=== PATIENT | female | born 1950 | race Caucasian/White ===

== ENCOUNTER 2018-02-27 05:30 | Inpatient (IN) ==
[2018-02-20 13:48] LABS: Basophils # 0.1 10*3/uL (0.0-0.2); Basophils % 0.7 % (0.0-0.8); Eosinophils # 0.2 10*3/uL (0.0-0.87); Eosinophils % 3.3 % (0.00-10.9); Hematocrit 42.7 VOL% (35.7-47.0); Hemoglobin 13.8 GM/DL (12.0-16.0); Immature Granulocytes % 0.3 %; Immature Granulocytes Absolute 0.02 #; Lymphocytes % 28.4 % (21.3-54.2); Mean Corpuscular HGB Conc 32.3 GM/DL (32-36); Mean Corpuscular Hemoglobin 29 PG (27-34); Mean Platelet Volume 9.8 FL (9.6-12.0); Monocytes # 0.4 10*3/uL (0.11-0.8); Monocytes % 5.8 % (1.7-12.7); Neutrophils # 4.2 10*3/uL (1.4-7.4); Neutrophils % 61.5 % (38.7-73.9); Platelet Count 291 T/CUMM (130-400); Red Blood Count 4.85 MC/CUMM (3.8-5.5); Red Cell Distribution Width 14.6 % (9.3-17.3); White Blood Count 6.9 T/CUMM (4-12)
[2018-02-20 14:18] LABS: Albumin 3.8 G/DL (3.4-5.0); Bilirubin,Total 0.7 MG/DL (0.2-1.0); Calcium 8.8 MG/DL (8.5-10.1); Osmolality,Calculated 284.1 MOS/KG (273-304); Total Protein 7.3 G/DL (6.4-8.3)
[2018-02-20 14:27] LABS: Apearance,Urine CLEAR (Clear); Bilirubin,Urine Negative (Negative); Blood, Urine Negative (Negative); Glucose,Urine (UA) Negative (Negative); INR 0.9; Ketones,Urine Negative (Negative); Mucus,Urine Occasional /LPF (Occasional); Nitrite,Urine Negative (Negative); PT Patient Result 9.6 SECS; Partial Thromboplastin Time 27.1 SECS (0-40); Protein,Urine Negative; RBC,Urine 1 /HPF (0-4); Squamous Epithelial Cell,Urine Occasional /HPF (0-10); Urine Color Yellow (Yellow); Urine Specific Gravity 1.009 (1.001-1.035); Urine Urobilinogen < 2.0 EU/DL (0.2-1.0); WBC,Urine 2 /HPF (0-6)
[2018-02-28 05:47] LABS: Basophils % 0.1 % (0.0-0.8); Hematocrit 31.9 VOL% (35.7-47.0); Hemoglobin 10.2 GM/DL (12.0-16.0); Immature Granulocytes % 0.7 %; Lymphocytes # 1.4 10*3/uL (1.4-4.0); Lymphocytes % 9.5 % (21.3-54.2); Mean Corpuscular Hemoglobin 29 PG (27-34); Mean Corpuscular Volume 89.4 FL (87-102); Mean Platelet Volume 10.3 FL (9.6-12.0); Monocytes # 1.1 10*3/uL (0.11-0.8); Monocytes % 7.5 % (1.7-12.7); Neutrophils # 12.3 10*3/uL (1.4-7.4); Neutrophils % 82.2 % (38.7-73.9); Platelet Count 233 T/CUMM (130-400); Red Blood Count 3.57 MC/CUMM (3.8-5.5); Red Cell Distribution Width 14.6 % (9.3-17.3); White Blood Count 14.9 T/CUMM (4-12)
[2018-02-28 06:20] LABS: Calcium 8.3 MG/DL (8.5-10.1); Osmolality,Calculated 290.8 MOS/KG (273-304); Potassium 3.9 MMOL/L (3.5-5.1)
[2018-03-01 05:34] LABS: Basophils % 0.2 % (0.0-0.8); Eosinophils # 0.1 10*3/uL (0.0-0.87); Hematocrit 32.3 VOL% (35.7-47.0); Hemoglobin 10.3 GM/DL (12.0-16.0); Immature Granulocytes % 0.5 %; Immature Granulocytes Absolute 0.06 #; Lymphocytes # 2.2 10*3/uL (1.4-4.0); Lymphocytes % 17.1 % (21.3-54.2); Mean Corpuscular HGB Conc 31.9 GM/DL (32-36); Mean Corpuscular Hemoglobin 28 PG (27-34); Mean Platelet Volume 10.3 FL (9.6-12.0); Monocytes % 7.5 % (1.7-12.7); Neutrophils # 9.6 10*3/uL (1.4-7.4); Neutrophils % 73.7 % (38.7-73.9); Platelet Count 270 T/CUMM (130-400); Red Blood Count 3.63 MC/CUMM (3.8-5.5); Red Cell Distribution Width 15.5 % (9.3-17.3); White Blood Count 13.1 T/CUMM (4-12)
[2018-03-02 04:39] LABS: Basophils # 0.1 10*3/uL (0.0-0.2); Basophils % 0.6 % (0.0-0.8); Eosinophils # 0.2 10*3/uL (0.0-0.87); Eosinophils % 2.6 % (0.00-10.9); Hemoglobin 10.2 GM/DL (12.0-16.0); Immature Granulocytes % 0.2 %; Immature Granulocytes Absolute 0.02 #; Lymphocytes # 2.1 10*3/uL (1.4-4.0); Lymphocytes % 23.2 % (21.3-54.2); Mean Corpuscular HGB Conc 31.9 GM/DL (32-36); Mean Corpuscular Hemoglobin 29 PG (27-34); Mean Corpuscular Volume 89.6 FL (87-102); Mean Platelet Volume 9.8 FL (9.6-12.0); Monocytes # 0.8 10*3/uL (0.11-0.8); Monocytes % 9.4 % (1.7-12.7); Neutrophils # 5.7 10*3/uL (1.4-7.4); Platelet Count 240 T/CUMM (130-400); Red Blood Count 3.57 MC/CUMM (3.8-5.5); Red Cell Distribution Width 15.4 % (9.3-17.3); White Blood Count 8.9 T/CUMM (4-12)
[2018-03-02 07:31] VITALS: BP 100/50
== END 2018-03-02 11:00 | disposition swing bed (61) | DRG 470 ==
LOC: N.OR 05:30 → N.SDSINP 05:30 → N.3E 11:33
PROVIDERS: ADMIT Orthopaedic Surgery; ATTEND Orthopaedic Surgery

== ENCOUNTER 2019-08-05 15:14 | Observation (INO) ==
[2019-08-05 15:50] LABS: Basophils # 0.1 10*3/uL (0.0-0.2); Basophils % 0.8 % (0.0-0.8); Eosinophils # 0.3 10*3/uL (0.0-0.87); Hematocrit 40.5 VOL% (35.7-47.0); Hemoglobin 12.6 GM/DL (12.0-16.0); Immature Granulocytes % 0.6 %; Immature Granulocytes Absolute 0.05 #; Lymphocytes % 22.5 % (21.3-54.2); Mean Corpuscular HGB Conc 31.1 GM/DL (32-36); Mean Corpuscular Volume 88.4 FL (87-102); Mean Platelet Volume 9.7 FL (9.6-12.0); Monocytes % 6.5 % (1.7-12.7); Neutrophils % 66.6 % (38.7-73.9); Platelet Count 311 T/CUMM (130-400); Red Blood Count 4.58 MC/CUMM (3.8-5.5); Red Cell Distribution Width 15.7 % (9.3-17.3); White Blood Count 8.9 T/CUMM (4-12)
[2019-08-05 16:03] LABS: INR 0.9; PT Patient Result 9.8 SECS (9.6-12.2)
[2019-08-05 16:13] LABS: Albumin 3.9 G/DL (3.4-5.0); Bilirubin,Total 0.8 MG/DL (0.2-1.0); Calcium 9.7 MG/DL (8.5-10.1); Total Protein 7.5 G/DL (6.4-8.3)
[2019-08-05 16:21] LABS: Thyroid Stimulating Hormone 0.116 uIU/ml (0.358-3.74)
[2019-08-05] MEDS ORDERED: NITROGLYCERIN 2% OINT 1 INCH/GM PACK TOP STA (16:54)
[2019-08-05] MEDS ORDERED: ENOXAPARIN 100 MG/ML SYRINGE SUBCUT STA (16:54)
[2019-08-05] MEDS ORDERED: ASPIRIN CHEW 81 MG TABLET PO STA (16:54)
[2019-08-05] MEDS ORDERED: HEPARIN 5,000 UNIT/1 ML VIAL IV STA (16:57)
[2019-08-05] MEDS ORDERED: CLOPIDOGREL 300 MG TABLET PO STA (16:58)
[2019-08-05] MEDS ORDERED: HEPARIN DRIP 25,000 UNITS/500 ML PREMIX IV SCH (17:00)
[2019-08-05] MEDS ORDERED: TICAGRELOR 90 MG TABLET PO STA (17:05)
[2019-08-05] MEDS ORDERED: diphenhydrAMINE CAP 25 MG CAPSULE PO PRN (17:47)
[2019-08-05] MEDS ORDERED: ACETAMINOPHEN 325 MG TABLET PO PRN (17:47)
[2019-08-05] MEDS ORDERED: ONDANSETRON 4 MG/2 ML VIAL IV PRN (17:47)
[2019-08-05] MEDS ORDERED: BISACODYL 5 MG TABLET PO PRN (17:47)
[2019-08-05] MEDS ORDERED: MAGNESIUM SULF RIDER 2 GM in PREMIX 1 EACH IV PRN (17:47)
[2019-08-05] MEDS ORDERED: MAGNESIUM SULF RIDER 4 GM in PREMIX 1 EACH IV PRN (17:47)
[2019-08-05] MEDS ORDERED: NITROGLYCERIN SL 0.4 MG TABLET SL PRN (17:51)
[2019-08-05] MEDS ORDERED: POTASSIUM CHLORIDE RIDER 10 MEQ in PREMIX 1 EACH IV PRN (17:53)
[2019-08-05] MEDS ORDERED: diphenhydrAMINE CAP 25 MG CAPSULE PO ONE (17:53)
[2019-08-05] MEDS ORDERED: DIAZEPAM 5 MG TABLET PO ONE (17:53)
[2019-08-05] MEDS ORDERED: INFLUENZA VIRUS VACCINE 0.5 ML SYRINGE IM ONE (18:23)
[2019-08-05] MEDS ORDERED: ALPRAZolam 0.25 MG TABLET PO PRN (21:00)
[2019-08-05] MEDS: OMEGA 3 ACID ETHYL ESTERS 1 GM CAPSULE PO SCH (21:42)
[2019-08-05] MEDS: LISINOPRIL 20 MG TABLET PO SCH (21:42)
[2019-08-05] MEDS: ROSUVASTATIN 20 MG TABLET PO SCH (21:43)
[2019-08-05] MEDS: carvediloL 3.125 MG TABLET PO SCH (21:43)
[2019-08-05] MEDS: CALCIUM (CARBONATE)/VITAMIN D 500 MG-200 UNIT TABLET PO SCH (21:44)
[2019-08-05] MEDS: PRAMIPEXOLE 0.25 MG TABLET PO SCH (21:44)
[2019-08-05] MEDS: HYDROCORTISONE 10 MG TABLET PO SCH (21:45)
[2019-08-05 22:50] LABS: Apearance,Urine CLEAR (Clear); Bacteria,Urine Occasional /HPF (Few); Bilirubin,Urine Negative (Negative); Blood, Urine Negative (Negative); Glucose,Urine (UA) Negative (Negative); Ketones,Urine Negative (Negative); Mucus,Urine Occasional /LPF (Occasional); Nitrite,Urine Negative (Negative); Protein,Urine Negative; RBC,Urine 2 /HPF (0-4); Urine Color Yellow (Yellow); Urine Urobilinogen < 2.0 EU/DL (0.2-1.0)
[2019-08-06 04:04] LABS: Basophils # 0.1 10*3/uL (0.0-0.2); Basophils % 0.7 % (0.0-0.8); Eosinophils # 0.3 10*3/uL (0.0-0.87); Eosinophils % 3.6 % (0.00-10.9); Hematocrit 37.2 VOL% (35.7-47.0); Hemoglobin 11.8 GM/DL (12.0-16.0); Immature Granulocytes % 0.4 %; Immature Granulocytes Absolute 0.03 #; Lymphocytes # 2.2 10*3/uL (1.4-4.0); Mean Corpuscular HGB Conc 31.7 GM/DL (32-36); Mean Corpuscular Volume 88.4 FL (87-102); Mean Platelet Volume 9.6 FL (9.6-12.0); Monocytes % 7.1 % (1.7-12.7); Neutrophils % 56.2 % (38.7-73.9); Platelet Count 255 T/CUMM (130-400); Red Blood Count 4.21 MC/CUMM (3.8-5.5); Red Cell Distribution Width 15.8 % (9.3-17.3); White Blood Count 6.9 T/CUMM (4-12)
[2019-08-06 04:22] LABS: Albumin 3.3 G/DL (3.4-5.0); Bilirubin,Total 1.2 MG/DL (0.2-1.0); Calcium 9.3 MG/DL (8.5-10.1); Osmolality,Calculated 293.4 MOS/KG (273-304); Total Protein 6.4 G/DL (6.4-8.3)
[2019-08-06] MEDS: SODIUM CHLORIDE 0.45% 1,000 ML IV SCH ×2 (05:17→17:48)
[2019-08-06] MEDS ORDERED: DIAZEPAM 5 MG TABLET PO ONE (06:30)
[2019-08-06] MEDS ORDERED: diphenhydrAMINE CAP 25 MG CAPSULE PO ONE (06:30)
[2019-08-06] MEDS: LEVOTHYROXINE 88 MCG TABLET PO SCH (06:43)
[2019-08-06] MEDS ORDERED: TIMOLOL 0.5% OPH SOLN 5 ML BOTTLE LEFT EYE SCH (09:00)
[2019-08-06] MEDS ORDERED: HYDROCORTISONE 10 MG TABLET PO ONE (09:00)
[2019-08-06] MEDS: CHOLECALCIFEROL 1,000 UNIT TABLET PO SCH (09:29)
[2019-08-06] MEDS: MULTIVITAMIN (CENTRUM) TABLET PO SCH (09:29)
[2019-08-06] MEDS: OMEGA 3 ACID ETHYL ESTERS 1 GM CAPSULE PO SCH ×2 (09:31→20:12)
[2019-08-06] MEDS: HYDROCORTISONE 10 MG TABLET PO SCH ×2 (09:31→20:14)
[2019-08-06] MEDS: carvediloL 3.125 MG TABLET PO SCH ×2 (09:32→18:22)
[2019-08-06] MEDS: PANTOPRAZOLE 40 MG TABLET PO SCH (09:32)
[2019-08-06] MEDS: NITROGLYCERIN DRIP 50 MG/250 ML BOTTLE IV SCH ×2 (10:42→18:22)
[2019-08-06] MEDS ORDERED: HEPARIN/NACL 0.9% 2 UNITS/ML 1,000 ML IV ONE (10:47)
[2019-08-06] MEDS ORDERED: LIDOCAINE 1% 20 ML VIAL ONE (11:13)
[2019-08-06] MEDS ORDERED: MIDAZOLAM 2 MG/2 ML VIAL ONE (11:16)
[2019-08-06] MEDS ORDERED: fentaNYL 100 MCG/2 ML VIAL ONE (11:16)
[2019-08-06] MEDS ORDERED: SODIUM CHLORIDE 0.9% 1,000 ML IV SCH (12:00)
[2019-08-06] MEDS: ROSUVASTATIN 20 MG TABLET PO SCH (20:11)
[2019-08-06] MEDS: LISINOPRIL 20 MG TABLET PO SCH (20:12)
[2019-08-06] MEDS: CALCIUM (CARBONATE)/VITAMIN D 500 MG-200 UNIT TABLET PO SCH (20:12)
[2019-08-06] MEDS: PRAMIPEXOLE 0.25 MG TABLET PO SCH (20:12)
[2019-08-07] MEDS: SODIUM CHLORIDE 0.45% 1,000 ML IV SCH ×2 (02:00→11:23)
[2019-08-07 04:41] LABS: Basophils # 0.1 10*3/uL (0.0-0.2); Basophils % 0.9 % (0.0-0.8); Eosinophils # 0.2 10*3/uL (0.0-0.87); Eosinophils % 2.8 % (0.00-10.9); Hematocrit 39.7 VOL% (35.7-47.0); Hemoglobin 12.2 GM/DL (12.0-16.0); Immature Granulocytes % 0.3 %; Immature Granulocytes Absolute 0.02 #; Lymphocytes # 2.3 10*3/uL (1.4-4.0); Lymphocytes % 28.8 % (21.3-54.2); Mean Corpuscular HGB Conc 30.7 GM/DL (32-36); Mean Corpuscular Volume 89.6 FL (87-102); Mean Platelet Volume 10.2 FL (9.6-12.0); Monocytes % 7.6 % (1.7-12.7); Neutrophils % 59.6 % (38.7-73.9); Platelet Count 262 T/CUMM (130-400); Red Blood Count 4.43 MC/CUMM (3.8-5.5); Red Cell Distribution Width 15.8 % (9.3-17.3); White Blood Count 7.8 T/CUMM (4-12)
[2019-08-07 05:04] LABS: Osmolality,Calculated 296.3 MOS/KG (273-304)
[2019-08-07] MEDS: LEVOTHYROXINE 88 MCG TABLET PO SCH (05:46)
[2019-08-07] MEDS: ENOXAPARIN 40 MG/0.4 ML SYRINGE SUBCUT SCH (05:46)
[2019-08-07] MEDS: carvediloL 3.125 MG TABLET PO SCH ×2 (08:54→18:20)
[2019-08-07] MEDS: ASPIRIN EC 81 MG TABLET PO SCH (08:54)
[2019-08-07] MEDS: ISOSORBIDE MONONITRATE 30 MG TABLET PO SCH (08:54)
[2019-08-07] MEDS: MULTIVITAMIN (CENTRUM) TABLET PO SCH (08:54)
[2019-08-07] MEDS: OMEGA 3 ACID ETHYL ESTERS 1 GM CAPSULE PO SCH ×2 (08:55→21:32)
[2019-08-07] MEDS: PANTOPRAZOLE 40 MG TABLET PO SCH (08:55)
[2019-08-07] MEDS: CHOLECALCIFEROL 1,000 UNIT TABLET PO SCH (08:56)
[2019-08-07] MEDS ORDERED: NON-FORMULARY MEDICATION (Esomeprazole Magnesium [Nexium] 40 MG) PO SCH (09:00)
[2019-08-07] MEDS: HYDROCORTISONE 10 MG TABLET PO SCH ×2 (09:01→21:30)
[2019-08-07] MEDS: DOCUSATE SODIUM 100 MG CAPSULE PO PRN ×2 (14:52→21:36)
[2019-08-07] MEDS: ROSUVASTATIN 20 MG TABLET PO SCH (21:29)
[2019-08-07] MEDS: LISINOPRIL 20 MG TABLET PO SCH (21:29)
[2019-08-07] MEDS: PRAMIPEXOLE 0.25 MG TABLET PO SCH (21:30)
[2019-08-07] MEDS: CALCIUM (CARBONATE)/VITAMIN D 500 MG-200 UNIT TABLET PO SCH (21:31)
[2019-08-08] MEDS: LEVOTHYROXINE 88 MCG TABLET PO SCH (06:08)
[2019-08-08] MEDS: ENOXAPARIN 40 MG/0.4 ML SYRINGE SUBCUT SCH (06:08)
[2019-08-08 08:25] VITALS: BP 120/60
[2019-08-08] MEDS: ASPIRIN EC 81 MG TABLET PO SCH (09:20)
[2019-08-08] MEDS: ISOSORBIDE MONONITRATE 30 MG TABLET PO SCH (09:20)
[2019-08-08] MEDS: carvediloL 3.125 MG TABLET PO SCH (09:21)
[2019-08-08] MEDS: MULTIVITAMIN (CENTRUM) TABLET PO SCH (09:21)
[2019-08-08] MEDS: PANTOPRAZOLE 40 MG TABLET PO SCH (09:21)
[2019-08-08] MEDS: CHOLECALCIFEROL 1,000 UNIT TABLET PO SCH (09:23)
[2019-08-08] MEDS: OMEGA 3 ACID ETHYL ESTERS 1 GM CAPSULE PO SCH (09:26)
[2019-08-08] MEDS: HYDROCORTISONE 10 MG TABLET PO SCH (09:27)
== END 2019-08-08 15:57 | disposition home or self-care (01) ==
LOC: N.ED 15:14 → N.EDINP 17:00 → INTOOBSV 17:00 → N.ICU 18:08 → N.TELES 08-07 18:41
PROVIDERS: ADMIT Internal Medicine Cardiovascular Disease; ATTEND Internal Medicine Cardiovascular Disease
PROC: CLCCHCL (ICD-10-PCS; 2019-08-06 11:15)

== ENCOUNTER 2019-08-13 08:53 | Inpatient (IN) ==
[~2019-08-13 08:53] MED LIST: DEXTROSE 50% 25 GM/50 ML VIAL IV PRN; GLUCAGON 1 MG VIAL IM PRN; NITROGLYCERIN SL 0.4 MG TABLET SL PRN; SODIUM CHLORIDE 0.9% 1,000 ML IV SCH
[2019-08-13] MEDS ORDERED: MODAFINIL 200 MG PO SCH (09:00)
[2019-08-13] MEDS ORDERED: BIOTIN 5 MG PO SCH (09:00)
[2019-08-13] MEDS ORDERED: FINASTERIDE 1 MG PO SCH (09:00)
[2019-08-13] MEDS: ASPIRIN EC 81 MG TABLET PO SCH (09:35)
[2019-08-13] MEDS: ISOSORBIDE MONONITRATE 30 MG TABLET PO SCH (09:36)
[2019-08-13] MEDS: LEVOTHYROXINE 88 MCG TABLET PO SCH (09:36)
[2019-08-13] MEDS: OMEGA 3 ACID ETHYL ESTERS 1 GM CAPSULE PO SCH ×2 (09:36→20:51)
[2019-08-13] MEDS: HYDROCORTISONE 10 MG TABLET PO SCH (09:36)
[2019-08-13] MEDS: MULTIVITAMIN (CENTRUM) TABLET PO SCH (09:36)
[2019-08-13] MEDS: carvediloL 3.125 MG TABLET PO SCH ×2 (09:36→20:51)
[2019-08-13] MEDS: PANTOPRAZOLE 40 MG TABLET PO SCH (09:36)
[2019-08-13] MEDS: CHLORHEXIDINE 0.12% ORAL RINSE 60 ML BOTTLE SWISH/SPIT SCH ×2 (09:36→22:22)
[2019-08-13] MEDS: CHOLECALCIFEROL 1,000 UNIT TABLET PO SCH (09:37)
[2019-08-13] MEDS: TIMOLOL 0.5% OPH SOLN 5 ML BOTTLE LEFT EYE SCH (09:37)
[2019-08-13] MEDS ORDERED: INFLUENZA VIRUS VACCINE 0.5 ML SYRINGE IM ONE (09:55)
[2019-08-13 10:01] LABS: Basophils # 0.1 10*3/uL (0.0-0.2); Basophils % 0.8 % (0.0-0.8); Eosinophils # 0.3 10*3/uL (0.0-0.87); Hematocrit 40.8 VOL% (35.7-47.0); Hemoglobin 12.7 GM/DL (12.0-16.0); Immature Granulocytes % 0.4 %; Immature Granulocytes Absolute 0.03 #; Lymphocytes # 2.9 10*3/uL (1.4-4.0); Lymphocytes % 38.8 % (21.3-54.2); Mean Corpuscular HGB Conc 31.1 GM/DL (32-36); Mean Corpuscular Volume 88.9 FL (87-102); Mean Platelet Volume 10.3 FL (9.6-12.0); Monocytes % 8.2 % (1.7-12.7); Neutrophils % 47.8 % (38.7-73.9); Platelet Count 315 T/CUMM (130-400); Red Blood Count 4.59 MC/CUMM (3.8-5.5); Red Cell Distribution Width 15.9 % (9.3-17.3); White Blood Count 7.6 T/CUMM (4-12)
[2019-08-13 10:26] LABS: Albumin 3.8 G/DL (3.4-5.0); Calcium 9.4 MG/DL (8.5-10.1); Osmolality,Calculated 286.8 MOS/KG (273-304); Total Protein 7.1 G/DL (6.4-8.3)
[2019-08-13] MEDS ORDERED: CEFUROXIME INJ 1,500 MG in SYRINGE 1 EACH IV ONE (12:00)
[2019-08-13 15:06] LABS: Allen Test Positive; Pt O2 Delivery Device Room Air
[2019-08-13 15:07] LABS: ABG Base Excess 0.4 MMOL/L (-2.5-2.5); ABG HCO3 24.7 MMOL/L (20-26); ABG Oxygen Saturation 93.9 % (95-100); ABG PCO2 40.3 MM HG (35-48); ABG PH 7.402 (7.35-7.45); ABG PO2 71.1 MM HG (80-95); ABG TCO2 22.2 MMOL/L (23-27)
[2019-08-13] MEDS: CHLORHEXIDINE 4% SOLN 118 ML BOTTLE TOP SCH ×2 (15:40→21:25)
[2019-08-13] MEDS ORDERED: DIAZEPAM 5 MG TABLET PO ONE (20:54)
[2019-08-13] MEDS ORDERED: FAMOTIDINE 20 MG TABLET PO ONE (20:54)
[2019-08-13] MEDS ORDERED: ROSUVASTATIN 20 MG TABLET PO SCH (21:00)
[2019-08-13] MEDS ORDERED: PRAMIPEXOLE 0.25 MG TABLET PO SCH (21:00)
[2019-08-13] MEDS ORDERED: HYDROCORTISONE 10 MG TABLET PO SCH (21:00)
[2019-08-13] MEDS ORDERED: LISINOPRIL 20 MG TABLET PO SCH (21:00)
[2019-08-13] MEDS ORDERED: CALCIUM (CITRATE)/VITAMIN D 200 MG-125 UNIT TABLET PO SCH (21:00)
[2019-08-14] MEDS ORDERED: PAPAVERINE 60 MG/2 ML VIAL ONE (04:22)
[2019-08-14] MEDS ORDERED: VANCOMYCIN 1,000 MG VIAL ONE (04:23)
[2019-08-14] MEDS ORDERED: DIAZEPAM 5 MG TABLET ONE (05:29)
[2019-08-14] MEDS: PANTOPRAZOLE 40 MG TABLET PO SCH ×2 (05:30→09:33)
[2019-08-14] MEDS: LEVOTHYROXINE 88 MCG TABLET PO SCH ×2 (05:30→09:33)
[2019-08-14] MEDS: CHLORHEXIDINE 4% SOLN 118 ML BOTTLE TOP SCH (05:37)
[2019-08-14] MEDS ORDERED: NITROPRUSSIDE 50 MG/2 ML VIAL ONE (07:11)
[2019-08-14] MEDS ORDERED: POTASSIUM CHLORIDE RIDER 100 ML IV ONE (07:12)
[2019-08-14] MEDS ORDERED: CALCIUM CHLORIDE 1,000 MG/10 ML SYRINGE IV ONE (07:12)
[2019-08-14] MEDS ORDERED: PHENYLEPHRINE DRIP 40 MG/250 ML PREMIX IV ONE (07:12)
[2019-08-14] MEDS ORDERED: SODIUM BICARBONATE 50 MEQ/50 ML VIAL IV ONE ×2 (07:12→09:41)
[2019-08-14] MEDS ORDERED: ALBUMIN 5% 12.5 GM/250 ML VIAL IV ONE ×2 (07:13)
[2019-08-14 07:45] LABS: ABG Base Excess 1.3 MMOL/L (-2.5-2.5); ABG HCO3 25.6 MMOL/L (20-26); ABG Oxygen Saturation 99.6 % (95-100); ABG PCO2 32.9 MM HG (35-48); ABG PH 7.476 (7.35-7.45); ABG TCO2 21.5 MMOL/L (23-27); Glucose Heart Surgery 111 MG/DL (74-106); Hematocrit Heart Surgery 35.5 PERCENT (37-47); Hemoglobin Heart Surgery 11.5 G/DL (12.0-16.0); Ionized Calcium Arterial 1.18 MMOL/L (1.21-1.46); PCO2 Patient Temp Arterial 32.9 MMHG; PH Patient Temp Arterial 7.476; Patient Temperature 37 CELCIUS; Potassium Heart/CVR 3.9 MMOL/L (3.5-5.1); Sodium Heart/CVR 143 MMOL/L (135-145)
[2019-08-14 07:52] LABS: Apearance,Urine CLEAR (Clear); Bilirubin,Urine Negative (Negative); Blood, Urine Small mg/dL (Negative); Glucose,Urine (UA) Negative (Negative); Ketones,Urine Negative (Negative); Mucus,Urine Occasional /LPF (Occasional); Nitrite,Urine Negative (Negative); Protein,Urine Negative; RBC,Urine 2 /HPF (0-4); Squamous Epithelial Cell,Urine Occasional /HPF (0-10); Urine Color Yellow (Yellow); Urine Specific Gravity 1.012 (1.001-1.035); Urine Urobilinogen < 2.0 EU/DL (0.2-1.0); WBC,Urine <1 /HPF (0-6)
[2019-08-14 09:00] LABS: Hematocrit Heart Surgery 24.5 PERCENT (37-47); Hemoglobin Heart Surgery 7.9 G/DL (12.0-16.0); PCO2 Patient Temp Venous 32.9 MM HG; PH Patient Temp Venous 7.469; PO2 Patient Temp Venous 37.8 MM HG; Potassium Heart/CVR 5.2 MMOL/L (3.5-5.1); VBG Base Excess 0.6 MEQ/L (0-4); VBG HCO3 24.8 MEQ/L (24-28); VBG Oxygen Saturation 83.4 %; VBG PCO2 36.3 MMHG (41-51); VBG PH 7.44; VBG PO2 43.4 MMHG (17-40)
[2019-08-14] MEDS ORDERED: LORazepam 2 MG/1 ML VIAL ONE (09:31)
[2019-08-14] MEDS: carvediloL 3.125 MG TABLET PO SCH (09:32)
[2019-08-14] MEDS: HYDROCORTISONE 10 MG TABLET PO SCH (09:32)
[2019-08-14] MEDS: MULTIVITAMIN (CENTRUM) TABLET PO SCH (09:32)
[2019-08-14] MEDS: ASPIRIN EC 81 MG TABLET PO SCH (09:32)
[2019-08-14] MEDS: ISOSORBIDE MONONITRATE 30 MG TABLET PO SCH (09:32)
[2019-08-14 09:33] LABS: ABG Base Excess -2.2 MMOL/L (-2.5-2.5); ABG HCO3 22.5 MMOL/L (20-26); ABG Oxygen Saturation 99.3 % (95-100); ABG PH 7.423 (7.35-7.45); ABG TCO2 19.9 MMOL/L (23-27); Glucose Heart Surgery 240 MG/DL (74-106); Ionized Calcium Arterial 1.46 MMOL/L (1.21-1.46); PH Patient Temp Arterial 7.423; Patient Temperature 37 CELCIUS; Sodium Heart/CVR 136 MMOL/L (135-145)
[2019-08-14] MEDS: TIMOLOL 0.5% OPH SOLN 5 ML BOTTLE LEFT EYE SCH (09:33)
[2019-08-14] MEDS: CHLORHEXIDINE 0.12% ORAL RINSE 60 ML BOTTLE SWISH/SPIT SCH (09:33)
[2019-08-14] MEDS: CHOLECALCIFEROL 1,000 UNIT TABLET PO SCH (09:33)
[2019-08-14] MEDS: OMEGA 3 ACID ETHYL ESTERS 1 GM CAPSULE PO SCH (09:33)
[2019-08-14] MEDS ORDERED: MANNITOL 100 GM/500 ML BAG IV ONE (09:40)
[2019-08-14] MEDS ORDERED: LIDOCAINE 2% 5 ML VIAL ONE ×2 (09:40→10:20)
[2019-08-14] MEDS ORDERED: DEXTROSE 5% KCL 20 MEQ 20 MEQ/1,000 ML BAG IV ONE (09:40)
[2019-08-14] MEDS ORDERED: ALBUMIN 25% 25 GM/100 ML VIAL IV ONE (09:41)
[2019-08-14] MEDS ORDERED: methylPREDNISolone SOD SUC 1,000 MG/8 ML VIAL ONE (09:41)
[2019-08-14] MEDS ORDERED: PROTAMINE SULFATE 250 MG/25 ML VIAL IV ONE (09:41)
[2019-08-14] MEDS ORDERED: FUROSEMIDE 20 MG/2 ML VIAL ONE (09:41)
[2019-08-14] MEDS ORDERED: MAGNESIUM SULFATE 5 GM/10 ML VIAL IV ONE (09:41)
[2019-08-14] MEDS ORDERED: HEPARIN 10,000 UNIT/10 ML VIAL ONE (09:42)
[2019-08-14] MEDS ORDERED: SUFentanil 250 MCG/5 ML AMP ONE (10:19)
[2019-08-14] MEDS ORDERED: MIDAZOLAM 10 MG/2 ML VIAL ONE (10:19)
[2019-08-14] MEDS ORDERED: ETOMIDATE 40 MG/20 ML VIAL IV ONE (10:20)
[2019-08-14] MEDS ORDERED: VECURONIUM 10 MG VIAL IV ONE (10:20)
[2019-08-14] MEDS ORDERED: AMINOCAPROIC ACID 5,000 MG/20 ML VIAL ONE (10:21)
[2019-08-14] MEDS ORDERED: METOPROLOL TARTRATE 5 MG/5 ML VIAL IV ONE (10:22)
[2019-08-14] MEDS ORDERED: HYDROCORTISONE 100 MG VIAL ONE (10:22)
[2019-08-14] MEDS ORDERED: PHENYLEPHRINE DRIP 20 MG/250 ML PREMIX IV ONE (10:23)
[2019-08-14] MEDS ORDERED: SODIUM CHLORIDE 0.9% 1,000 ML IV ONE (10:23)
[2019-08-14] MEDS ORDERED: SODIUM CHLORIDE 0.9% 100 ML IV ONE (10:23)
[2019-08-14] MEDS ORDERED: LACTATED RINGERS 1,000 ML IV ONE (10:23)
[2019-08-14] MEDS ORDERED: CALCIUM CHLORIDE 1,000 MG/10 ML VIAL IV ONE (10:23)
[2019-08-14] MEDS ORDERED: NITROGLYCERIN DRIP 50 MG/250 ML BOTTLE IV ONE (10:23)
[2019-08-14] MEDS ORDERED: SODIUM CHLORIDE 0.9% 250 ML IV ONE (10:23)
[2019-08-14] MEDS ORDERED: HEPARIN/NACL 0.9% 2 UNITS/ML 500 ML IV ONE (10:23)
[2019-08-14] MEDS ORDERED: INSULIN REGULAR DRIP 100 ML IV SCH (10:34)
[2019-08-14] MEDS ORDERED: MAGNESIUM SULF RIDER 4 GM in PREMIX 1 EACH IV PRN (10:34)
[2019-08-14] MEDS ORDERED: INSULIN REGULAR 100 UNIT/ML IV PRN (10:34)
[2019-08-14] MEDS ORDERED: VECURONIUM 10 MG VIAL IV PRN ×2 (10:34)
[2019-08-14] MEDS ORDERED: DEXTROSE 50% 25 GM/50 ML VIAL IV PRN ×2 (10:34)
[2019-08-14] MEDS ORDERED: LACTATED RINGERS 250 ML IV PRN (10:34)
[2019-08-14] MEDS ORDERED: MIDAZOLAM 10 MG/2 ML VIAL IV PRN (10:34)
[2019-08-14] MEDS ORDERED: ACETAMINOPHEN 650 MG SUPP RECTAL PRN (10:34)
[2019-08-14] MEDS ORDERED: SODIUM CHLORIDE 0.45% 1,000 ML IV SCH ×2 (10:34)
[2019-08-14] MEDS ORDERED: NITROPRUSSIDE 100 MG in DEXTROSE 5% 250 ML IV PRN (10:34)
[2019-08-14] MEDS ORDERED: CALCIUM CHLORIDE 1,000 MG/10 ML SYRINGE IV PRN (10:34)
[2019-08-14] MEDS ORDERED: INSULIN REGULAR 100 UNIT/ML IV ONE (10:34)
[2019-08-14] MEDS ORDERED: MAGNESIUM SULF RIDER 2 GM in PREMIX 1 EACH IV PRN (10:34)
[2019-08-14] MEDS ORDERED: MORPHINE 10 MG/1 ML VIAL IV PRN (10:34)
[2019-08-14] MEDS ORDERED: PHENYLEPHRINE DRIP 40 MG/250 ML PREMIX IV PRN (10:34)
[2019-08-14] MEDS ORDERED: ONDANSETRON 4 MG/2 ML VIAL IV PRN (10:34)
[2019-08-14] MEDS ORDERED: MIDAZOLAM 2 MG/2 ML VIAL IV PRN (10:34)
[2019-08-14] MEDS: ALBUMIN 5% 12.5 GM in PREMIX 1 EACH IV PRN ×4 (10:52→21:20)
[2019-08-14 10:57] LABS: ABG Base Excess -0.3 MMOL/L (-2.5-2.5); ABG HCO3 24.2 MMOL/L (20-26); ABG Oxygen Saturation 98.8 % (95-100); ABG PCO2 37.7 MM HG (35-48); ABG PH 7.412 (7.35-7.45); ABG TCO2 21.6 MMOL/L (23-27); Glucose Heart Surgery 161 MG/DL (74-106); Hematocrit Heart Surgery 33.4 PERCENT (37-47); Hemoglobin Heart Surgery 10.8 G/DL (12.0-16.0); Potassium Heart/CVR 3.8 MMOL/L (3.5-5.1)
[2019-08-14 11:03] LABS: Basophils % 0.4 % (0.0-0.8); Eosinophils # 0.2 10*3/uL (0.0-0.87); Eosinophils % 1.9 % (0.00-10.9); Hematocrit 34.9 VOL% (35.7-47.0); Hemoglobin 10.9 GM/DL (12.0-16.0); Immature Granulocytes % 1.1 %; Lymphocytes # 1.5 10*3/uL (1.4-4.0); Lymphocytes % 16.4 % (21.3-54.2); Mean Corpuscular HGB Conc 31.2 GM/DL (32-36); Mean Platelet Volume 10.5 FL (9.6-12.0); Monocytes % 4.9 % (1.7-12.7); Neutrophils % 75.3 % (38.7-73.9); Platelet Count 219 T/CUMM (130-400); Red Blood Count 3.92 MC/CUMM (3.8-5.5); Red Cell Distribution Width 16.1 % (9.3-17.3); White Blood Count 8.9 T/CUMM (4-12)
[2019-08-14] MEDS: POTASSIUM CHLORIDE RIDER 20 MEQ in PREMIX 1 EACH IV PRN ×4 (11:08→18:20)
[2019-08-14 11:11] LABS: PT Patient Result 11.1 SECS (9.6-12.2); Partial Thromboplastin Time 26.4 SECS (20.8-36.0)
[2019-08-14 11:40] LABS: Albumin 3.2 G/DL (3.4-5.0); Bilirubin,Total 1.6 MG/DL (0.2-1.0); Calcium 8.8 MG/DL (8.5-10.1); Osmolality,Calculated 289.7 MOS/KG (273-304); Total Protein 5.9 G/DL (6.4-8.3)
[2019-08-14] MEDS: POTASSIUM CHLORIDE RIDER 10 MEQ in PREMIX 1 EACH IV PRN ×3 (11:50→18:51)
[2019-08-14] MEDS ORDERED: LACTATED RINGERS 1,000 ML IV PRN (12:54)
[2019-08-14 13:08] LABS: ABG Base Excess 2.2 MMOL/L (-2.5-2.5); ABG HCO3 26.7 MMOL/L (20-26); ABG Oxygen Saturation 97.6 % (95-100); ABG PCO2 41.1 MM HG (35-48); ABG PH 7.431 (7.35-7.45); ABG PO2 115.3 MM HG (80-95); Glucose Heart Surgery 153 MG/DL (74-106); Hemoglobin Heart Surgery 11.6 G/DL (12.0-16.0); Potassium Heart/CVR 3.8 MMOL/L (3.5-5.1)
[2019-08-14] MEDS: KETOROLAC 30 MG/1 ML VIAL IV SCH ×3 (13:09→21:35)
[2019-08-14 14:54] LABS: ABG Base Excess 0.3 MMOL/L (-2.5-2.5); ABG HCO3 24.7 MMOL/L (20-26); ABG Oxygen Saturation 97.7 % (95-100); ABG PCO2 41.4 MM HG (35-48); ABG PH 7.394 (7.35-7.45); ABG TCO2 22.7 MMOL/L (23-27); Glucose Heart Surgery 189 MG/DL (74-106); Hematocrit Heart Surgery 34.3 PERCENT (37-47); Hemoglobin Heart Surgery 11.1 G/DL (12.0-16.0); Potassium Heart/CVR 4.2 MMOL/L (3.5-5.1)
[2019-08-14] MEDS: CEFUROXIME INJ 1,500 MG in SODIUM CHLORIDE 0.9% 100 ML IV SCH (17:44)
[2019-08-14] MEDS: MORPHINE 4 MG/1 ML VIAL IV PRN ×2 (17:48→21:37)
[2019-08-14 17:56] LABS: ABG Base Excess -0.4 MMOL/L (-2.5-2.5); ABG HCO3 24.1 MMOL/L (20-26); ABG Oxygen Saturation 95.8 % (95-100); ABG PCO2 41.7 MM HG (35-48); ABG PH 7.381 (7.35-7.45); ABG PO2 81.9 MM HG (80-95); ABG TCO2 22.3 MMOL/L (23-27); Glucose Heart Surgery 164 MG/DL (74-106); Hematocrit Heart Surgery 33.7 PERCENT (37-47); Hemoglobin Heart Surgery 10.9 G/DL (12.0-16.0); Potassium Heart/CVR 3.9 MMOL/L (3.5-5.1)
[2019-08-14 20:16] LABS: ABG Base Excess -0.6 MMOL/L (-2.5-2.5); ABG HCO3 23.9 MMOL/L (20-26); ABG Oxygen Saturation 95.9 % (95-100); ABG PCO2 38.8 MM HG (35-48); ABG PO2 80.7 MM HG (80-95); ABG TCO2 21.6 MMOL/L (23-27); Glucose Heart Surgery 140 MG/DL (74-106); Hematocrit Heart Surgery 33.8 PERCENT (37-47); Hemoglobin Heart Surgery 10.9 G/DL (12.0-16.0); Potassium Heart/CVR 3.9 MMOL/L (3.5-5.1)
[2019-08-14] MEDS ORDERED: FUROSEMIDE 40 MG/4 ML VIAL IV ONE (20:54)
[2019-08-14] MEDS ORDERED: CHLORHEXIDINE 0.12% ORAL RINSE 60 ML BOTTLE SWISH/SPIT SCH (21:00)
[2019-08-14 21:05] LABS: Troponin I 0.557 NG/ML (0.00-0.045)
[2019-08-14 21:28] LABS: ABG Base Excess -0.5 MMOL/L (-2.5-2.5); ABG HCO3 23.9 MMOL/L (20-26); ABG Oxygen Saturation 92.9 % (95-100); ABG PCO2 40.3 MM HG (35-48); ABG PO2 66.5 MM HG (80-95); ABG TCO2 22.1 MMOL/L (23-27); Glucose Heart Surgery 123 MG/DL (74-106); Hematocrit Heart Surgery 32.4 PERCENT (37-47); Hemoglobin Heart Surgery 10.5 G/DL (12.0-16.0)
[2019-08-14] MEDS ORDERED: AMIODARONE INJ 150 MG in DEXTROSE 5% 100 ML IV ONE (21:30)
[2019-08-14] MEDS ORDERED: AMIODARONE INJ 450 MG in DEXTROSE 5% 241 ML IV SCH (22:00)
[2019-08-14] MEDS ORDERED: carvediloL 3.125 MG TABLET PO ONE (22:00)
[2019-08-15] MEDS: KETOROLAC 30 MG/1 ML VIAL IV SCH ×4 (03:36→21:58)
[2019-08-15 03:54] LABS: Basophils % 0.2 % (0.0-0.8); Hematocrit 32.3 VOL% (35.7-47.0); Hemoglobin 10.1 GM/DL (12.0-16.0); Immature Granulocytes % 0.4 %; Immature Granulocytes Absolute 0.07 #; Lymphocytes % 5.6 % (21.3-54.2); Mean Corpuscular HGB Conc 31.3 GM/DL (32-36); Mean Corpuscular Volume 88.3 FL (87-102); Mean Platelet Volume 11.4 FL (9.6-12.0); Monocytes % 2.2 % (1.7-12.7); Neutrophils % 91.6 % (38.7-73.9); Platelet Count 163 T/CUMM (130-400); Red Blood Count 3.66 MC/CUMM (3.8-5.5); Red Cell Distribution Width 16.2 % (9.3-17.3); White Blood Count 17.7 T/CUMM (4-12)
[2019-08-15 04:03] LABS: ABG Base Excess 0.9 MMOL/L (-2.5-2.5); ABG HCO3 25.1 MMOL/L (20-26); ABG Oxygen Saturation 92.7 % (95-100); ABG PCO2 39.1 MM HG (35-48); ABG PH 7.419 (7.35-7.45); ABG PO2 63.8 MM HG (80-95); ABG TCO2 22.5 MMOL/L (23-27); Glucose Heart Surgery 152 MG/DL (74-106); Hematocrit Heart Surgery 36.1 PERCENT (37-47); Hemoglobin Heart Surgery 11.7 G/DL (12.0-16.0); Potassium Heart/CVR 3.9 MMOL/L (3.5-5.1)
[2019-08-15 04:12] LABS: Band Neutrophils 4 % (0-10); Lymphocytes 5 % (20-55); Segmented Neutrophils 89 % (50-85); Total Cells Counted 100
[2019-08-15 04:13] LABS: Hypochromasia 1+; Platelet Estimate Adequate
[2019-08-15] MEDS: POTASSIUM CHLORIDE RIDER 20 MEQ in PREMIX 1 EACH IV PRN (04:19)
[2019-08-15] MEDS ORDERED: AMIODARONE INJ 450 MG in DEXTROSE 5% 241 ML IV SCH (04:30)
[2019-08-15 04:42] LABS: Alanine Aminotransferase 47 U/L (13-56); Albumin 3.7 G/DL (3.4-5.0); Alkaline Phosphatase 54 U/L (45-117); Aspartate Amino Transferase 87 U/L (0-37); Bilirubin,Direct < 0.100 MG/DL (0.0-0.20); Blood Urea Nitrogen 14 MG/DL (7-18); Calcium 8.6 MG/DL (8.5-10.1); Estimated Glom Filtration Rate 81 ML/MIN; Glucose 137 MG/DL (74-106); Osmolality,Calculated 285.1 MOS/KG (273-304); Total Protein 6.7 G/DL (6.4-8.3)
[2019-08-15 04:43] LABS: Troponin I 0.403 NG/ML (0.00-0.045)
[2019-08-15] MEDS: CEFUROXIME INJ 1,500 MG in SODIUM CHLORIDE 0.9% 100 ML IV SCH (05:57)
[2019-08-15] MEDS ORDERED: MAGNESIUM SULF RIDER 4 GM in PREMIX 1 EACH IV PRN (07:31)
[2019-08-15] MEDS ORDERED: ONDANSETRON 4 MG/2 ML VIAL IV PRN (07:31)
[2019-08-15] MEDS ORDERED: GLUCAGON 1 MG VIAL IM PRN ×2 (07:31)
[2019-08-15] MEDS ORDERED: MAGNESIUM SULF RIDER 2 GM in PREMIX 1 EACH IV PRN (07:31)
[2019-08-15] MEDS ORDERED: KETOROLAC 30 MG/1 ML VIAL IV SCH (07:31)
[2019-08-15] MEDS ORDERED: POTASSIUM CHLORIDE 20 MEQ TABLET PO PRN (07:31)
[2019-08-15] MEDS ORDERED: ZALEPLON 5 MG CAPSULE PO PRN (07:31)
[2019-08-15] MEDS ORDERED: ACETAMINOPHEN 325 MG TABLET PO PRN (07:31)
[2019-08-15] MEDS ORDERED: DEXTROSE 50% 25 GM/50 ML VIAL IV PRN ×3 (07:31→11:18)
[2019-08-15] MEDS ORDERED: ALUMINUM/MAGNES/SIMETH MAX STR 30 ML UDCUP PO PRN (07:31)
[2019-08-15] MEDS: methylPREDNISolone SOD SUC 40 MG/1 ML VIAL IV SCH ×2 (07:39→18:26)
[2019-08-15] MEDS: carvediloL 3.125 MG TABLET PO SCH ×2 (07:39→16:49)
[2019-08-15] MEDS: MULTIVITAMIN (CENTRUM) TABLET PO SCH (08:01)
[2019-08-15] MEDS: LEVOTHYROXINE 88 MCG TABLET PO SCH (08:01)
[2019-08-15] MEDS: CHOLECALCIFEROL 1,000 UNIT TABLET PO SCH (08:01)
[2019-08-15] MEDS: ASPIRIN EC 81 MG TABLET PO SCH (08:01)
[2019-08-15] MEDS: ISOSORBIDE MONONITRATE 30 MG TABLET PO SCH (08:02)
[2019-08-15] MEDS: PANTOPRAZOLE 40 MG TABLET PO SCH (08:03)
[2019-08-15] MEDS: DOCUSATE SODIUM 100 MG CAPSULE PO SCH (08:06)
[2019-08-15] MEDS: FERROUS SULFATE 325 MG TABLET PO SCH (08:06)
[2019-08-15] MEDS: AMIODARONE 200 MG TABLET PO SCH ×2 (08:06→21:58)
[2019-08-15] MEDS: HYDROCORTISONE 10 MG TABLET PO SCH ×2 (08:07→21:58)
[2019-08-15] MEDS: TIMOLOL 0.5% OPH SOLN 5 ML BOTTLE LEFT EYE SCH (08:09)
[2019-08-15] MEDS: OMEGA 3 ACID ETHYL ESTERS 1 GM CAPSULE PO SCH ×2 (08:13→21:57)
[2019-08-15] MEDS ORDERED: LEVOTHYROXINE 88 MCG TABLET PO SCH (09:00)
[2019-08-15] MEDS ORDERED: carvediloL 3.125 MG TABLET PO SCH ×2 (09:00)
[2019-08-15] MEDS ORDERED: CHOLECALCIFEROL 1,000 UNIT TABLET PO SCH (09:00)
[2019-08-15] MEDS ORDERED: ISOSORBIDE MONONITRATE 30 MG TABLET PO SCH (09:00)
[2019-08-15] MEDS ORDERED: MULTIVITAMIN (CENTRUM) TABLET PO SCH (09:00)
[2019-08-15] MEDS ORDERED: ASPIRIN EC 81 MG TABLET PO SCH (09:00)
[2019-08-15] MEDS ORDERED: TIMOLOL 0.5% OPH SOLN 5 ML BOTTLE LEFT EYE SCH (09:00)
[2019-08-15] MEDS ORDERED: OMEGA 3 ACID ETHYL ESTERS 1 GM CAPSULE PO SCH (09:00)
[2019-08-15] MEDS ORDERED: PANTOPRAZOLE 40 MG TABLET PO SCH (09:00)
[2019-08-15] MEDS: CHLORHEXIDINE 0.12% ORAL RINSE 60 ML BOTTLE SWISH/SPIT SCH ×2 (09:36→22:00)
[2019-08-15] MEDS: SODIUM CHLOR 0.45% KCL 20 MEQ 20 MEQ/1,000 ML BAG IV SCH (09:36)
[2019-08-15] MEDS: INSULIN REGULAR 100 UNIT/ML SUBCUT SCH ×4 (12:26→21:59)
[2019-08-15] MEDS ORDERED: CEFUROXIME INJ 1,500 MG in SYRINGE 1 EACH IV ONE (18:15)
[2019-08-15] MEDS ORDERED: HYDROCORTISONE 10 MG TABLET PO SCH (21:00)
[2019-08-15] MEDS ORDERED: ROSUVASTATIN 20 MG TABLET PO SCH (21:00)
[2019-08-15] MEDS ORDERED: CALCIUM (CITRATE)/VITAMIN D 200 MG-125 UNIT TABLET PO SCH (21:00)
[2019-08-15] MEDS ORDERED: LISINOPRIL 20 MG TABLET PO SCH (21:00)
[2019-08-15] MEDS ORDERED: PRAMIPEXOLE 0.25 MG TABLET PO SCH (21:00)
[2019-08-15] MEDS: ROSUVASTATIN 20 MG TABLET PO SCH (21:57)
[2019-08-15] MEDS: LISINOPRIL 20 MG TABLET PO SCH (21:57)
[2019-08-15] MEDS: PRAMIPEXOLE 0.25 MG TABLET PO SCH (21:57)
[2019-08-15] MEDS: CALCIUM (CITRATE)/VITAMIN D 200 MG-125 UNIT TABLET PO SCH (21:58)
[2019-08-16] MEDS: INSULIN REGULAR 100 UNIT/ML SUBCUT SCH ×6 (01:34→22:57)
[2019-08-16] MEDS: KETOROLAC 30 MG/1 ML VIAL IV SCH ×4 (05:25→22:58)
[2019-08-16 05:43] LABS: Basophils % 0.1 % (0.0-0.8); Hematocrit 32.2 VOL% (35.7-47.0); Hemoglobin 9.5 GM/DL (12.0-16.0); Immature Granulocytes % 0.6 %; Lymphocytes # 1.1 10*3/uL (1.4-4.0); Lymphocytes % 6.1 % (21.3-54.2); Mean Corpuscular HGB Conc 29.5 GM/DL (32-36); Mean Corpuscular Volume 92.8 FL (87-102); Mean Platelet Volume 11.3 FL (9.6-12.0); Monocytes % 4.8 % (1.7-12.7); Neutrophils % 88.4 % (38.7-73.9); Platelet Count 234 T/CUMM (130-400); Red Blood Count 3.47 MC/CUMM (3.8-5.5); Red Cell Distribution Width 16.7 % (9.3-17.3); White Blood Count 17.9 T/CUMM (4-12)
[2019-08-16] MEDS ORDERED: FUROSEMIDE 40 MG/4 ML VIAL IV ONE (06:00)
[2019-08-16] MEDS: methylPREDNISolone SOD SUC 40 MG/1 ML VIAL IV SCH ×2 (06:07→18:40)
[2019-08-16 06:13] LABS: Alanine Aminotransferase 30 U/L (13-56); Albumin 3.4 G/DL (3.4-5.0); Alkaline Phosphatase 59 U/L (45-117); Aspartate Amino Transferase 8 U/L (0-37); Bilirubin,Indirect 0.8 MG/DL (0.0-1.0); Blood Urea Nitrogen 25 MG/DL (7-18); Calcium 9.1 MG/DL (8.5-10.1); Estimated Glom Filtration Rate 80 ML/MIN; Glucose 152 MG/DL (74-106); Osmolality,Calculated 296.6 MOS/KG (273-304); Troponin I 0.164 NG/ML (0.00-0.045)
[2019-08-16] MEDS: SODIUM CHLOR 0.45% KCL 20 MEQ 20 MEQ/1,000 ML BAG IV SCH (09:32)
[2019-08-16] MEDS: ISOSORBIDE MONONITRATE 30 MG TABLET PO SCH (09:46)
[2019-08-16] MEDS: DOCUSATE SODIUM 100 MG CAPSULE PO SCH (09:46)
[2019-08-16] MEDS: PANTOPRAZOLE 40 MG TABLET PO SCH (09:46)
[2019-08-16] MEDS: AMIODARONE 200 MG TABLET PO SCH ×2 (09:46→22:56)
[2019-08-16] MEDS: CHOLECALCIFEROL 1,000 UNIT TABLET PO SCH (09:46)
[2019-08-16] MEDS: FERROUS SULFATE 325 MG TABLET PO SCH (09:46)
[2019-08-16] MEDS: OMEGA 3 ACID ETHYL ESTERS 1 GM CAPSULE PO SCH ×2 (09:46→22:56)
[2019-08-16] MEDS: LEVOTHYROXINE 88 MCG TABLET PO SCH (09:46)
[2019-08-16] MEDS: carvediloL 3.125 MG TABLET PO SCH ×2 (09:46→16:46)
[2019-08-16] MEDS: MULTIVITAMIN (CENTRUM) TABLET PO SCH (09:46)
[2019-08-16] MEDS: HYDROCORTISONE 10 MG TABLET PO SCH ×2 (09:46→22:57)
[2019-08-16] MEDS: ASPIRIN EC 81 MG TABLET PO SCH (09:46)
[2019-08-16] MEDS: CHLORHEXIDINE 0.12% ORAL RINSE 60 ML BOTTLE SWISH/SPIT SCH ×2 (09:47→22:57)
[2019-08-16] MEDS: MAGNESIUM HYDROXIDE SUSP 30 ML UDCUP PO PRN ×2 (09:50→16:53)
[2019-08-16] MEDS: TIMOLOL 0.5% OPH SOLN 5 ML BOTTLE LEFT EYE SCH (09:54)
[2019-08-16] MEDS ORDERED: INSULIN REGULAR 100 UNIT/ML SUBCUT SCH (11:30)
[2019-08-16] MEDS: PRAMIPEXOLE 0.25 MG TABLET PO SCH (22:56)
[2019-08-16] MEDS: CALCIUM (CITRATE)/VITAMIN D 200 MG-125 UNIT TABLET PO SCH (22:56)
[2019-08-16] MEDS: ROSUVASTATIN 20 MG TABLET PO SCH (22:56)
[2019-08-16] MEDS: LISINOPRIL 20 MG TABLET PO SCH (22:56)
[2019-08-17] MEDS: KETOROLAC 30 MG/1 ML VIAL IV SCH ×4 (06:15→23:49)
[2019-08-17 07:13] LABS: Basophils % 0.1 % (0.0-0.8); Hematocrit 30.7 VOL% (35.7-47.0); Hemoglobin 9.3 GM/DL (12.0-16.0); Immature Granulocytes % 1.1 %; Immature Granulocytes Absolute 0.16 #; Lymphocytes # 1.2 10*3/uL (1.4-4.0); Lymphocytes % 8.3 % (21.3-54.2); Mean Corpuscular HGB Conc 30.3 GM/DL (32-36); Mean Corpuscular Volume 91.6 FL (87-102); Mean Platelet Volume 10.9 FL (9.6-12.0); Monocytes % 6.6 % (1.7-12.7); Neutrophils % 83.9 % (38.7-73.9); Platelet Count 238 T/CUMM (130-400); Red Blood Count 3.35 MC/CUMM (3.8-5.5); Red Cell Distribution Width 16.5 % (9.3-17.3); White Blood Count 14.3 T/CUMM (4-12)
[2019-08-17 07:48] LABS: Alanine Aminotransferase 31 U/L (13-56); Albumin 3.3 G/DL (3.4-5.0); Alkaline Phosphatase 61 U/L (45-117); Aspartate Amino Transferase 10 U/L (0-37); Bilirubin,Indirect 0.5 MG/DL (0.0-1.0); Blood Urea Nitrogen 29 MG/DL (7-18); Calcium 8.8 MG/DL (8.5-10.1); Estimated Glom Filtration Rate 80 ML/MIN; Glucose 144 MG/DL (74-106); Osmolality,Calculated 296.7 MOS/KG (273-304)
[2019-08-17 07:49] LABS: Troponin I 0.073 NG/ML (0.00-0.045)
[2019-08-17] MEDS: ISOSORBIDE MONONITRATE 30 MG TABLET PO SCH (09:12)
[2019-08-17] MEDS: FERROUS SULFATE 325 MG TABLET PO SCH (09:12)
[2019-08-17] MEDS: AMIODARONE 200 MG TABLET PO SCH ×2 (09:12→21:38)
[2019-08-17] MEDS: MULTIVITAMIN (CENTRUM) TABLET PO SCH (09:12)
[2019-08-17] MEDS: ASPIRIN EC 81 MG TABLET PO SCH (09:12)
[2019-08-17] MEDS: CHOLECALCIFEROL 1,000 UNIT TABLET PO SCH (09:12)
[2019-08-17] MEDS: INSULIN REGULAR 100 UNIT/ML SUBCUT SCH ×4 (09:12→21:37)
[2019-08-17] MEDS: carvediloL 3.125 MG TABLET PO SCH ×2 (09:12→18:04)
[2019-08-17] MEDS: HYDROCORTISONE 10 MG TABLET PO SCH ×2 (09:13→21:39)
[2019-08-17] MEDS: LEVOTHYROXINE 88 MCG TABLET PO SCH (09:13)
[2019-08-17] MEDS: DOCUSATE SODIUM 100 MG CAPSULE PO SCH (09:14)
[2019-08-17] MEDS: CHLORHEXIDINE 0.12% ORAL RINSE 60 ML BOTTLE SWISH/SPIT SCH ×2 (09:14→21:38)
[2019-08-17] MEDS: PANTOPRAZOLE 40 MG TABLET PO SCH (09:14)
[2019-08-17] MEDS: OMEGA 3 ACID ETHYL ESTERS 1 GM CAPSULE PO SCH ×2 (09:14→21:36)
[2019-08-17] MEDS: TIMOLOL 0.5% OPH SOLN 5 ML BOTTLE LEFT EYE SCH (09:15)
[2019-08-17] MEDS: ROSUVASTATIN 20 MG TABLET PO SCH (21:36)
[2019-08-17] MEDS: CALCIUM (CITRATE)/VITAMIN D 200 MG-125 UNIT TABLET PO SCH (21:36)
[2019-08-17] MEDS: PRAMIPEXOLE 0.25 MG TABLET PO SCH (21:36)
[2019-08-17] MEDS: LISINOPRIL 20 MG TABLET PO SCH (21:36)
[2019-08-18] MEDS: KETOROLAC 30 MG/1 ML VIAL IV SCH (04:08)
[2019-08-18] MEDS: INSULIN REGULAR 100 UNIT/ML SUBCUT SCH ×4 (09:20→23:54)
[2019-08-18] MEDS: CHOLECALCIFEROL 1,000 UNIT TABLET PO SCH (09:21)
[2019-08-18] MEDS: LEVOTHYROXINE 88 MCG TABLET PO SCH (09:21)
[2019-08-18] MEDS: FERROUS SULFATE 325 MG TABLET PO SCH (09:21)
[2019-08-18] MEDS: DOCUSATE SODIUM 100 MG CAPSULE PO SCH (09:21)
[2019-08-18] MEDS: ISOSORBIDE MONONITRATE 30 MG TABLET PO SCH (09:21)
[2019-08-18] MEDS: ASPIRIN EC 81 MG TABLET PO SCH (09:22)
[2019-08-18] MEDS: MULTIVITAMIN (CENTRUM) TABLET PO SCH (09:22)
[2019-08-18] MEDS: carvediloL 3.125 MG TABLET PO SCH ×2 (09:22→17:33)
[2019-08-18] MEDS: PANTOPRAZOLE 40 MG TABLET PO SCH (09:22)
[2019-08-18] MEDS: HYDROCORTISONE 10 MG TABLET PO SCH ×2 (09:22→21:45)
[2019-08-18] MEDS: AMIODARONE 200 MG TABLET PO SCH ×2 (09:22→21:30)
[2019-08-18] MEDS: OMEGA 3 ACID ETHYL ESTERS 1 GM CAPSULE PO SCH ×2 (09:22→21:30)
[2019-08-18] MEDS: CHLORHEXIDINE 0.12% ORAL RINSE 60 ML BOTTLE SWISH/SPIT SCH ×2 (09:26→21:31)
[2019-08-18] MEDS: TIMOLOL 0.5% OPH SOLN 5 ML BOTTLE LEFT EYE SCH (09:26)
[2019-08-18] MEDS: ROSUVASTATIN 20 MG TABLET PO SCH (21:28)
[2019-08-18] MEDS: CALCIUM (CITRATE)/VITAMIN D 200 MG-125 UNIT TABLET PO SCH (21:29)
[2019-08-18] MEDS: oxyCODONE/ACETAMINOPHEN 5-325 MG TABLET PO PRN (21:29)
[2019-08-18] MEDS: PRAMIPEXOLE 0.25 MG TABLET PO SCH (21:29)
[2019-08-18] MEDS: LISINOPRIL 20 MG TABLET PO SCH (21:30)
[2019-08-19 03:23] LABS: Basophils % 0.3 % (0.0-0.8); Eosinophils # 0.4 10*3/uL (0.0-0.87); Eosinophils % 4.1 % (0.00-10.9); Hematocrit 34.1 VOL% (35.7-47.0); Hemoglobin 10.4 GM/DL (12.0-16.0); Immature Granulocytes % 3.5 %; Immature Granulocytes Absolute 0.34 #; Lymphocytes # 2.3 10*3/uL (1.4-4.0); Lymphocytes % 23.2 % (21.3-54.2); Mean Corpuscular HGB Conc 30.5 GM/DL (32-36); Mean Corpuscular Volume 90.2 FL (87-102); Mean Platelet Volume 9.8 FL (9.6-12.0); Monocytes % 6.9 % (1.7-12.7); NRBC # 0.02 10*3/uL; Platelet Count 269 T/CUMM (130-400); Red Blood Count 3.78 MC/CUMM (3.8-5.5); Red Cell Distribution Width 16.6 % (9.3-17.3); White Blood Count 9.8 T/CUMM (4-12)
[2019-08-19 03:43] LABS: Alanine Aminotransferase 40 U/L (13-56); Albumin 3.1 G/DL (3.4-5.0); Alkaline Phosphatase 65 U/L (45-117); Aspartate Amino Transferase 17 U/L (0-37); Bilirubin,Indirect 0.5 MG/DL (0.0-1.0); Blood Urea Nitrogen 23 MG/DL (7-18); Calcium 8.7 MG/DL (8.5-10.1); Estimated Glom Filtration Rate 93 ML/MIN; Glucose 114 MG/DL (74-106); Osmolality,Calculated 290.8 MOS/KG (273-304); Troponin I 0.038 NG/ML (0.00-0.045)
[2019-08-19 03:50] VITALS: BP 142/71
[2019-08-19] MEDS: oxyCODONE/ACETAMINOPHEN 5-325 MG TABLET PO PRN (04:22)
[2019-08-19] MEDS ORDERED: LEVOTHYROXINE 88 MCG TABLET PO SCH (06:30)
[2019-08-19] MEDS: OMEGA 3 ACID ETHYL ESTERS 1 GM CAPSULE PO SCH (08:46)
[2019-08-19] MEDS: carvediloL 3.125 MG TABLET PO SCH (08:48)
[2019-08-19] MEDS: CHOLECALCIFEROL 1,000 UNIT TABLET PO SCH (08:48)
[2019-08-19] MEDS: DOCUSATE SODIUM 100 MG CAPSULE PO SCH (08:48)
[2019-08-19] MEDS: MULTIVITAMIN (CENTRUM) TABLET PO SCH (08:50)
[2019-08-19] MEDS: AMIODARONE 200 MG TABLET PO SCH (08:50)
[2019-08-19] MEDS: ASPIRIN EC 81 MG TABLET PO SCH (08:50)
[2019-08-19] MEDS: HYDROCORTISONE 10 MG TABLET PO SCH (08:51)
[2019-08-19] MEDS: PANTOPRAZOLE 40 MG TABLET PO SCH (08:52)
[2019-08-19] MEDS: FERROUS SULFATE 325 MG TABLET PO SCH (08:52)
[2019-08-19] MEDS: ISOSORBIDE MONONITRATE 30 MG TABLET PO SCH (08:53)
[2019-08-19] MEDS: CHLORHEXIDINE 0.12% ORAL RINSE 60 ML BOTTLE SWISH/SPIT SCH (08:54)
[2019-08-19] MEDS: TIMOLOL 0.5% OPH SOLN 5 ML BOTTLE LEFT EYE SCH (08:54)
== END 2019-08-19 10:41 | disposition home health service (06) | DRG 236 ==
LOC: N.4E 08:53 → N.CVR 08-14 09:54 → N.ICU 08-15 08:45 → N.TELES 08-15 14:01

== ENCOUNTER 2019-10-24 15:01 | Observation (INO) ==
[2019-10-24] MEDS ORDERED: NITROGLYCERIN SL 0.4 MG TABLET SL PRN (15:52)
[2019-10-24] MEDS ORDERED: ASPIRIN 325 MG TABLET PO STA (15:52)
[2019-10-24 16:06] LABS: Basophils # 0.1 10*3/uL (0.0-0.2); Basophils % 0.7 % (0.0-0.8); Eosinophils # 0.2 10*3/uL (0.0-0.87); Eosinophils % 2.5 % (0.00-10.9); Hemoglobin 11.3 GM/DL (12.0-16.0); Immature Granulocytes % 0.1 %; Immature Granulocytes Absolute 0.01 #; Lymphocytes # 2.5 10*3/uL (1.4-4.0); Lymphocytes % 30.3 % (21.3-54.2); Mean Corpuscular HGB Conc 30.5 GM/DL (32-36); Mean Corpuscular Volume 84.5 FL (87-102); Mean Platelet Volume 9.9 FL (9.6-12.0); Monocytes % 6.3 % (1.7-12.7); Neutrophils % 60.1 % (38.7-73.9); Platelet Count 321 T/CUMM (130-400); Red Blood Count 4.38 MC/CUMM (3.8-5.5); White Blood Count 8.3 T/CUMM (4-12)
[2019-10-24 16:24] LABS: Calcium 8.3 MG/DL (8.5-10.1); Osmolality,Calculated 290.6 MOS/KG (273-304)
[2019-10-24] MEDS ORDERED: MAGNESIUM SULF RIDER 2 GM in PREMIX 1 EACH IV PRN (17:58)
[2019-10-24] MEDS ORDERED: ZALEPLON 5 MG CAPSULE PO PRN (17:58)
[2019-10-24] MEDS ORDERED: MAGNESIUM SULF RIDER 4 GM in PREMIX 1 EACH IV PRN (17:58)
[2019-10-24] MEDS ORDERED: ONDANSETRON 4 MG/2 ML VIAL IV PRN (17:58)
[2019-10-24] MEDS ORDERED: SODIUM CHLORIDE 0.45% 1,000 ML IV SCH (18:00)
[2019-10-24] MEDS ORDERED: carvediloL 3.125 MG TABLET PO SCH (21:00)
[2019-10-24] MEDS ORDERED: HYDROCORTISONE 10 MG TABLET PO SCH (21:00)
[2019-10-24] MEDS ORDERED: FINASTERIDE 1 MG PO SCH (21:00)
[2019-10-24] MEDS ORDERED: PRAMIPEXOLE 0.25 MG TABLET PO SCH (21:00)
[2019-10-24] MEDS ORDERED: CHOLECALCIFEROL 1,000 UNIT TABLET PO SCH (21:00)
[2019-10-24] MEDS ORDERED: ROSUVASTATIN 20 MG TABLET PO SCH (21:00)
[2019-10-24] MEDS: OMEGA 3 ACID ETHYL ESTERS 1 GM CAPSULE PO SCH (21:12)
[2019-10-24] MEDS: ENOXAPARIN 100 MG/ML SYRINGE SUBCUT SCH ×2 (21:12→23:47)
[2019-10-25 05:57] LABS: Risk Ratio 3.02; VLDL CHOLESTEROL 49.4 MG/DL
[2019-10-25] MEDS: ENOXAPARIN 100 MG/ML SYRINGE SUBCUT SCH (06:05)
[2019-10-25] MEDS ORDERED: LEVOTHYROXINE 88 MCG TABLET PO SCH (06:30)
[2019-10-25] MEDS ORDERED: carvediloL 6.25 MG TABLET PO SCH (07:48)
[2019-10-25] MEDS ORDERED: GLUCAGON 1 MG VIAL IM PRN (08:51)
[2019-10-25] MEDS ORDERED: DEXTROSE 50% 25 GM/50 ML VIAL IV PRN (08:51)
[2019-10-25] MEDS ORDERED: CALCIUM (CARBONATE) 500 MG TABLET PO SCH (09:00)
[2019-10-25] MEDS ORDERED: NON-FORMULARY MEDICATION (Biotin 5 MG) PO SCH (09:00)
[2019-10-25] MEDS ORDERED: HYDROCORTISONE 10 MG TABLET PO SCH (09:00)
[2019-10-25] MEDS ORDERED: PANTOPRAZOLE 40 MG TABLET PO SCH ×2 (09:00)
[2019-10-25] MEDS ORDERED: ISOSORBIDE MONONITRATE 30 MG TABLET PO SCH (09:00)
[2019-10-25] MEDS ORDERED: TIMOLOL 0.5% OPH SOLN 5 ML BOTTLE LEFT EYE SCH (09:00)
[2019-10-25] MEDS ORDERED: EZETIMIBE 10 MG TABLET PO SCH (09:00)
[2019-10-25] MEDS ORDERED: MULTIVITAMIN (CENTRUM) TABLET PO SCH (09:00)
[2019-10-25] MEDS ORDERED: ASPIRIN EC 81 MG TABLET PO SCH (09:00)
[2019-10-25] MEDS: OMEGA 3 ACID ETHYL ESTERS 1 GM CAPSULE PO SCH (09:11)
[2019-10-25] MEDS ORDERED: INSULIN REGULAR 100 UNIT/ML SUBCUT SCH (11:30)
[2019-10-25 12:06] VITALS: BP 112/64
== END 2019-10-25 16:19 | disposition home or self-care (01) ==
LOC: N.EDINP 15:01 → N.ED 15:01 → N.EDINP 19:05 → N.2W 20:10
PROVIDERS: ADMIT Internal Medicine Cardiovascular Disease; ATTEND Internal Medicine Cardiovascular Disease

== ENCOUNTER 2020-02-01 12:05 | Observation (INO) ==
[2020-02-01] MEDS ORDERED: ASPIRIN 325 MG TABLET PO STA (12:26)
[2020-02-01] MEDS ORDERED: NITROGLYCERIN 2% OINT 1 INCH/GM PACK TOP STA (12:26)
[2020-02-01 12:54] LABS: Basophils % 0.6 % (0.0-0.8); Eosinophils # 0.1 10*3/uL (0.0-0.87); Hematocrit 41.9 VOL% (35.7-47.0); Hemoglobin 12.5 GM/DL (12.0-16.0); Immature Granulocytes % 0.4 %; Immature Granulocytes Absolute 0.03 #; Lymphocytes # 1.6 10*3/uL (1.4-4.0); Lymphocytes % 23.5 % (21.3-54.2); Mean Corpuscular HGB Conc 29.8 GM/DL (32-36); Mean Corpuscular Volume 84.6 FL (87-102); Mean Platelet Volume 9.6 FL (9.6-12.0); Monocytes % 6.1 % (1.7-12.7); Neutrophils % 68.4 % (38.7-73.9); Platelet Count 286 T/CUMM (130-400); Red Blood Count 4.95 MC/CUMM (3.8-5.5); Red Cell Distribution Width 20.6 % (9.3-17.3); White Blood Count 6.7 T/CUMM (4-12)
[2020-02-01 13:06] LABS: PT Patient Result 10.3 SECS (9.8-11.9)
[2020-02-01 13:24] LABS: Alanine Aminotransferase 42 U/L (13-56); Albumin 3.9 G/DL (3.4-5.0); Alkaline Phosphatase 84 U/L (45-117); Aspartate Amino Transferase 21 U/L (0-37); Blood Urea Nitrogen 11 MG/DL (7-18); Calcium 9.3 MG/DL (8.5-10.1); Estimated Glom Filtration Rate 80 ML/MIN; Glucose 185 MG/DL (74-106); Osmolality,Calculated 284.3 MOS/KG (273-304); Total Protein 7.4 G/DL (6.4-8.3); Troponin I < 0.015 NG/ML (0.00-0.045)
[2020-02-01] MEDS ORDERED: ENOXAPARIN 100 MG/ML SYRINGE SUBCUT STA (13:45)
[2020-02-01] MEDS ORDERED: ACETAMINOPHEN 325 MG TABLET PO PRN (13:49)
[2020-02-01] MEDS ORDERED: ONDANSETRON 4 MG/2 ML VIAL IV PRN (13:49)
[2020-02-01] MEDS ORDERED: MAGNESIUM SULF RIDER 2 GM in PREMIX 1 EACH IV PRN (13:49)
[2020-02-01] MEDS ORDERED: MAGNESIUM SULF RIDER 4 GM in PREMIX 1 EACH IV PRN (13:49)
[2020-02-01] MEDS ORDERED: SODIUM CHLORIDE 0.9% 1,000 ML IV SCH (14:00)
[2020-02-01] MEDS ORDERED: ENOXAPARIN 40 MG/0.4 ML SYRINGE SUBCUT SCH (14:00)
[2020-02-01 17:27] LABS: Troponin I < 0.015 NG/ML (0.00-0.045)
[2020-02-01] MEDS ORDERED: NITROGLYCERIN SL 0.4 MG TABLET SL PRN (20:20)
[2020-02-01] MEDS ORDERED: FINASTERIDE 1 MG PO SCH (21:00)
[2020-02-01] MEDS ORDERED: carvediloL 6.25 MG TABLET PO SCH (21:00)
[2020-02-01] MEDS: carvediloL 12.5 MG TABLET PO SCH (21:50)
[2020-02-01] MEDS: HYDROCORTISONE 10 MG TABLET PO SCH (21:50)
[2020-02-01] MEDS: RANOLAZINE 500 MG TABLET PO SCH (21:52)
[2020-02-01] MEDS: PRAMIPEXOLE 0.25 MG TABLET PO SCH (21:52)
[2020-02-01] MEDS: OMEGA 3 ACID ETHYL ESTERS 1 GM CAPSULE PO SCH (21:52)
[2020-02-01] MEDS: ENOXAPARIN 100 MG/ML SYRINGE SUBCUT SCH (21:52)
[2020-02-01 22:11] LABS: Troponin I < 0.015 NG/ML (0.00-0.045)
[2020-02-02 05:10] LABS: Basophils # 0.1 10*3/uL (0.0-0.2); Basophils % 0.7 % (0.0-0.8); Eosinophils # 0.1 10*3/uL (0.0-0.87); Eosinophils % 1.7 % (0.00-10.9); Hematocrit 39.1 VOL% (35.7-47.0); Hemoglobin 11.9 GM/DL (12.0-16.0); Immature Granulocytes % 0.3 %; Immature Granulocytes Absolute 0.02 #; Lymphocytes # 2.2 10*3/uL (1.4-4.0); Lymphocytes % 31.1 % (21.3-54.2); Mean Corpuscular HGB Conc 30.4 GM/DL (32-36); Mean Platelet Volume 9.8 FL (9.6-12.0); Monocytes % 6.1 % (1.7-12.7); Neutrophils % 60.1 % (38.7-73.9); Platelet Count 263 T/CUMM (130-400); Red Blood Count 4.71 MC/CUMM (3.8-5.5); Red Cell Distribution Width 20.7 % (9.3-17.3)
[2020-02-02 05:34] LABS: Troponin I < 0.015 NG/ML (0.00-0.045)
[2020-02-02 05:49] LABS: Albumin 3.6 G/DL (3.4-5.0); Calcium 8.7 MG/DL (8.5-10.1); Osmolality,Calculated 286.8 MOS/KG (273-304); Total Protein 6.7 G/DL (6.4-8.3)
[2020-02-02] MEDS: LEVOTHYROXINE 88 MCG TABLET PO SCH (06:16)
[2020-02-02] MEDS ORDERED: amLODIPine 5 MG TABLET PO SCH (09:00)
[2020-02-02] MEDS ORDERED: NON-FORMULARY MEDICATION (Esomeprazole Magnesium [Nexium] 40 MG) PO SCH (09:00)
[2020-02-02] MEDS ORDERED: LACTULOSE 320 GM/480 ML BOTTLE PO SCH (09:00)
[2020-02-02] MEDS: LACTULOSE 20 GM/30 ML UDCUP PO SCH (09:45)
[2020-02-02] MEDS: TIMOLOL 0.5% OPH SOLN 5 ML BOTTLE LEFT EYE SCH (09:46)
[2020-02-02] MEDS: ISOSORBIDE MONONITRATE 60 MG TABLET PO SCH (09:46)
[2020-02-02] MEDS: ENOXAPARIN 100 MG/ML SYRINGE SUBCUT SCH ×2 (09:46→22:15)
[2020-02-02] MEDS: ASPIRIN EC 81 MG TABLET PO SCH (09:47)
[2020-02-02] MEDS: carvediloL 12.5 MG TABLET PO SCH ×2 (09:47→16:43)
[2020-02-02] MEDS: PANTOPRAZOLE 40 MG TABLET PO SCH (09:47)
[2020-02-02] MEDS: RANOLAZINE 500 MG TABLET PO SCH ×2 (09:47→22:16)
[2020-02-02] MEDS: FUROSEMIDE 40 MG TABLET PO SCH (09:47)
[2020-02-02] MEDS: CLOPIDOGREL 75 MG TABLET PO SCH (09:47)
[2020-02-02] MEDS: HYDROCORTISONE 10 MG TABLET PO SCH ×2 (09:48→22:17)
[2020-02-02] MEDS: OMEGA 3 ACID ETHYL ESTERS 1 GM CAPSULE PO SCH ×2 (09:48→22:16)
[2020-02-02] MEDS: POTASSIUM CHLORIDE 20 MEQ TABLET PO SCH (09:48)
[2020-02-02] MEDS ORDERED: EZETIMIBE 10 MG TABLET PO SCH (19:00)
[2020-02-02] MEDS ORDERED: MULTIVITAMIN (CENTRUM) TABLET PO SCH (19:00)
[2020-02-02] MEDS ORDERED: CALCIUM CITRATE VITAMIN D3 PO SCH (19:00)
[2020-02-02] MEDS ORDERED: ROSUVASTATIN 20 MG TABLET PO SCH (21:00)
[2020-02-02] MEDS ORDERED: CHOLECALCIFEROL 1,000 UNIT TABLET PO SCH (21:30)
[2020-02-02] MEDS: PRAMIPEXOLE 0.25 MG TABLET PO SCH (22:17)
[2020-02-03] MEDS: LEVOTHYROXINE 88 MCG TABLET PO SCH (06:28)
[2020-02-03] MEDS ORDERED: RANOLAZINE 500 MG TABLET PO SCH (07:51)
[2020-02-03] MEDS ORDERED: carvediloL 25 MG TABLET PO SCH (07:51)
[2020-02-03 08:48] VITALS: BP 123/79
[2020-02-03] MEDS: POTASSIUM CHLORIDE 20 MEQ TABLET PO SCH (09:29)
[2020-02-03] MEDS: FUROSEMIDE 40 MG TABLET PO SCH (09:29)
[2020-02-03] MEDS: PANTOPRAZOLE 40 MG TABLET PO SCH (09:29)
[2020-02-03] MEDS: LACTULOSE 20 GM/30 ML UDCUP PO SCH (09:29)
[2020-02-03] MEDS: ASPIRIN EC 81 MG TABLET PO SCH (09:29)
[2020-02-03] MEDS: OMEGA 3 ACID ETHYL ESTERS 1 GM CAPSULE PO SCH (09:29)
[2020-02-03] MEDS: HYDROCORTISONE 10 MG TABLET PO SCH (09:29)
[2020-02-03] MEDS: CLOPIDOGREL 75 MG TABLET PO SCH (09:29)
[2020-02-03] MEDS: ISOSORBIDE MONONITRATE 60 MG TABLET PO SCH (09:29)
[2020-02-03] MEDS: TIMOLOL 0.5% OPH SOLN 5 ML BOTTLE LEFT EYE SCH (09:30)
[2020-02-03] MEDS ORDERED: EZETIMIBE 10 MG TABLET PO SCH (21:00)
[2020-02-03] MEDS ORDERED: MULTIVITAMIN (CENTRUM) TABLET PO SCH (21:00)
== END 2020-02-03 11:33 | disposition home or self-care (01) ==
LOC: N.EDINP 12:05 → N.ED 12:05 → N.TELEN 16:08
PROVIDERS: ADMIT Internal Medicine Clinical Cardiac Electrophysiology; ATTEND Internal Medicine Clinical Cardiac Electrophysiology

== ENCOUNTER 2021-05-21 10:34 | Inpatient (IN) ==
[2021-05-21 12:26] LABS: Basophils % 0.2 % (0.0-0.8); Eosinophils % 0.1 % (0.00-10.9); Hematocrit 38.8 VOL% (35.7-47.0); Hemoglobin 12.6 GM/DL (12.0-16.0); Immature Granulocytes % 0.3 %; Immature Granulocytes Absolute 0.03 #; Lymphocytes # 0.8 10*3/uL (1.4-4.0); Lymphocytes % 7.3 % (21.3-54.2); Mean Corpuscular HGB Conc 32.5 GM/DL (32-36); Mean Corpuscular Volume 90.7 FL (87-102); Mean Platelet Volume 9.4 FL (9.6-12.0); Monocytes % 3.2 % (1.7-12.7); Neutrophils % 88.9 % (38.7-73.9); Platelet Count 266 T/CUMM (130-400); Red Blood Count 4.28 MC/CUMM (3.8-5.5); White Blood Count 11.5 T/CUMM (4-12)
[2021-05-21 13:15] LABS: Albumin 3.5 G/DL (3.4-5.0); Calcium 8.9 MG/DL (8.5-10.1); Ferritin 336.8 ng/ml (8-252); Osmolality,Calculated 274.2 MOS/KG (273-304); Total Protein 7.3 G/DL (6.4-8.2)
[2021-05-21] MEDS ORDERED: DEXAMETHASONE 4 MG TABLET ONE (13:26)
[2021-05-21] MEDS ORDERED: DEXTROSE 50% 25 GM/50 ML VIAL IV PRN ×2 (15:54)
[2021-05-21] MEDS ORDERED: ONDANSETRON 4 MG/2 ML VIAL IV PRN (15:54)
[2021-05-21] MEDS ORDERED: GLUCAGON 1 MG VIAL IM PRN ×2 (15:54)
[2021-05-21] MEDS ORDERED: NITROGLYCERIN SL 0.4 MG TABLET SL PRN (15:55)
[2021-05-21] MEDS ORDERED: FUROSEMIDE 40 MG/4 ML VIAL IV ONE (15:57)
[2021-05-21] MEDS: methylPREDNISolone SOD SUC 40 MG/1 ML VIAL IV SCH ×2 (16:31→22:08)
[2021-05-21] MEDS: ENOXAPARIN 40 MG/0.4 ML SYRINGE SUBCUT SCH (16:31)
[2021-05-21] MEDS: INSULIN LISPRO 100 UNIT/ML SUBCUT SCH ×2 (17:31→20:39)
[2021-05-21] MEDS: PRAMIPEXOLE 0.25 MG TABLET PO SCH (20:15)
[2021-05-21] MEDS: RANOLAZINE 500 MG TABLET PO SCH (20:16)
[2021-05-21] MEDS: FAMOTIDINE 20 MG TABLET PO SCH (20:16)
[2021-05-21] MEDS: ROSUVASTATIN 20 MG TABLET PO SCH (20:16)
[2021-05-21] MEDS: ASCORBIC ACID 500 MG TABLET PO SCH (20:16)
[2021-05-21] MEDS: carvediloL 25 MG TABLET PO SCH (20:16)
[2021-05-22] MEDS: methylPREDNISolone SOD SUC 40 MG/1 ML VIAL IV SCH ×4 (04:25→21:10)
[2021-05-22] MEDS: LEVOTHYROXINE 88 MCG TABLET PO SCH (05:48)
[2021-05-22 06:03] LABS: Basophils % 0.1 % (0.0-0.8); Hematocrit 37.9 VOL% (35.7-47.0); Hemoglobin 12.3 GM/DL (12.0-16.0); Immature Granulocytes % 0.3 %; Immature Granulocytes Absolute 0.02 #; Lymphocytes # 0.7 10*3/uL (1.4-4.0); Lymphocytes % 9.5 % (21.3-54.2); Mean Corpuscular HGB Conc 32.5 GM/DL (32-36); Mean Corpuscular Volume 91.1 FL (87-102); Mean Platelet Volume 9.4 FL (9.6-12.0); Monocytes % 1.7 % (1.7-12.7); Neutrophils % 88.4 % (38.7-73.9); Platelet Count 272 T/CUMM (130-400); Red Blood Count 4.16 MC/CUMM (3.8-5.5); Red Cell Distribution Width 14.8 % (9.3-17.3); White Blood Count 7.6 T/CUMM (4-12)
[2021-05-22 06:36] LABS: Hypochromasia Slight; Lymphocytes 12 % (20-55); Microcytosis Slight; Platelet Estimate Adequate; Segmented Neutrophils 85 % (50-85); Total Cells Counted 100
[2021-05-22 06:37] LABS: Calcium 9.2 MG/DL (8.5-10.1); Ferritin 392.4 ng/ml (8-252)
[2021-05-22] MEDS ORDERED: REMDESIVIR 200 MG in SODIUM CHLORIDE 0.9% 210 ML IV ONE (09:00)
[2021-05-22] MEDS: SPIRONOLACTONE 25 MG TABLET PO SCH (09:03)
[2021-05-22] MEDS: ISOSORBIDE MONONITRATE 30 MG TABLET PO SCH (09:03)
[2021-05-22] MEDS: INSULIN LISPRO 100 UNIT/ML SUBCUT SCH ×4 (09:03→21:00)
[2021-05-22] MEDS: carvediloL 25 MG TABLET PO SCH ×2 (09:03→21:00)
[2021-05-22] MEDS: FINASTERIDE 5 MG TABLET PO SCH (09:04)
[2021-05-22] MEDS: AZITHROMYCIN INJ 500 MG in SODIUM CHLORIDE 0.9% 250 ML IV SCH (09:04)
[2021-05-22] MEDS: CLOPIDOGREL 75 MG TABLET PO SCH (09:04)
[2021-05-22] MEDS: PANTOPRAZOLE 40 MG TABLET PO SCH (09:04)
[2021-05-22] MEDS: TIMOLOL 0.5% OPH SOLN 5 ML BOTTLE LEFT EYE SCH (09:04)
[2021-05-22] MEDS: CHOLECALCIFEROL 1,000 UNIT TABLET PO SCH (09:04)
[2021-05-22] MEDS: EZETIMIBE 10 MG TABLET PO SCH (09:04)
[2021-05-22] MEDS: ZINC GLUCONATE 50 MG TABLET PO SCH (09:04)
[2021-05-22] MEDS: ASCORBIC ACID 500 MG TABLET PO SCH ×2 (09:04→21:00)
[2021-05-22] MEDS: FAMOTIDINE 20 MG TABLET PO SCH ×2 (09:04→21:00)
[2021-05-22] MEDS: RANOLAZINE 500 MG TABLET PO SCH ×2 (09:04→21:00)
[2021-05-22] MEDS: CETIRIZINE 10 MG TABLET PO SCH (09:05)
[2021-05-22] MEDS: ENOXAPARIN 40 MG/0.4 ML SYRINGE SUBCUT SCH (15:56)
[2021-05-22] MEDS: ROSUVASTATIN 20 MG TABLET PO SCH (21:00)
[2021-05-22] MEDS: OMEGA 3 ACID ETHYL ESTERS 1 GM CAPSULE PO SCH (21:00)
[2021-05-22] MEDS: PRAMIPEXOLE 0.25 MG TABLET PO SCH (21:00)
[2021-05-23] MEDS: methylPREDNISolone SOD SUC 40 MG/1 ML VIAL IV SCH ×4 (04:00→21:33)
[2021-05-23 06:12] LABS: Basophils % 0.1 % (0.0-0.8); Hematocrit 38.8 VOL% (35.7-47.0); Hemoglobin 12.4 GM/DL (12.0-16.0); Immature Granulocytes % 0.4 %; Immature Granulocytes Absolute 0.06 #; Lymphocytes # 0.9 10*3/uL (1.4-4.0); Lymphocytes % 6.7 % (21.3-54.2); Mean Corpuscular Volume 91.5 FL (87-102); Mean Platelet Volume 9.6 FL (9.6-12.0); Monocytes % 3.9 % (1.7-12.7); Neutrophils % 88.9 % (38.7-73.9); Platelet Count 333 T/CUMM (130-400); Red Blood Count 4.24 MC/CUMM (3.8-5.5); Red Cell Distribution Width 14.6 % (9.3-17.3); White Blood Count 13.8 T/CUMM (4-12)
[2021-05-23] MEDS: LEVOTHYROXINE 88 MCG TABLET PO SCH (06:33)
[2021-05-23] MEDS: ALBUTEROL INHALER 18 GM INH SCH ×3 (06:33→20:06)
[2021-05-23 06:35] LABS: Calcium 9.7 MG/DL (8.5-10.1); Osmolality,Calculated 283.7 MOS/KG (273-304); Potassium 3.8 MMOL/L (3.5-5.1)
[2021-05-23] MEDS: SPIRONOLACTONE 25 MG TABLET PO SCH (09:39)
[2021-05-23] MEDS: carvediloL 25 MG TABLET PO SCH ×2 (09:39→21:32)
[2021-05-23] MEDS: FAMOTIDINE 20 MG TABLET PO SCH ×2 (09:39→21:32)
[2021-05-23] MEDS: CLOPIDOGREL 75 MG TABLET PO SCH (09:39)
[2021-05-23] MEDS: ISOSORBIDE MONONITRATE 30 MG TABLET PO SCH (09:39)
[2021-05-23] MEDS: INSULIN LISPRO 100 UNIT/ML SUBCUT SCH ×4 (09:39→21:32)
[2021-05-23] MEDS: OMEGA 3 ACID ETHYL ESTERS 1 GM CAPSULE PO SCH ×2 (09:39→21:32)
[2021-05-23] MEDS: EZETIMIBE 10 MG TABLET PO SCH (09:40)
[2021-05-23] MEDS: TIMOLOL 0.5% OPH SOLN 5 ML BOTTLE LEFT EYE SCH (09:40)
[2021-05-23] MEDS: ZINC GLUCONATE 50 MG TABLET PO SCH (09:40)
[2021-05-23] MEDS: PANTOPRAZOLE 40 MG TABLET PO SCH (09:40)
[2021-05-23] MEDS: CHOLECALCIFEROL 1,000 UNIT TABLET PO SCH (09:40)
[2021-05-23] MEDS: FINASTERIDE 5 MG TABLET PO SCH (09:40)
[2021-05-23] MEDS: ASCORBIC ACID 500 MG TABLET PO SCH ×2 (09:40→21:32)
[2021-05-23] MEDS: RANOLAZINE 500 MG TABLET PO SCH ×2 (09:40→21:32)
[2021-05-23] MEDS: AZITHROMYCIN INJ 500 MG in SODIUM CHLORIDE 0.9% 250 ML IV SCH (09:41)
[2021-05-23] MEDS: CETIRIZINE 10 MG TABLET PO SCH (09:42)
[2021-05-23] MEDS: REMDESIVIR 100 MG in SODIUM CHLORIDE 0.9% 100 ML IV SCH (10:46)
[2021-05-23] MEDS: ENOXAPARIN 40 MG/0.4 ML SYRINGE SUBCUT SCH (17:07)
[2021-05-23] MEDS: PRAMIPEXOLE 0.25 MG TABLET PO SCH (21:32)
[2021-05-23] MEDS: ROSUVASTATIN 20 MG TABLET PO SCH (21:32)
[2021-05-23] MEDS ORDERED: DOCUSATE SODIUM 100 MG CAPSULE PO PRN (23:55)
[2021-05-23] MEDS ORDERED: BISACODYL 5 MG TABLET PO PRN (23:56)
[2021-05-24] MEDS: ALBUTEROL INHALER 18 GM INH SCH ×4 (00:02→21:31)
[2021-05-24] MEDS: IBUPROFEN 400 MG TABLET PO PRN (01:02)
[2021-05-24 04:06] LABS: Basophils % 0.2 % (0.0-0.8); Hematocrit 35.6 VOL% (35.7-47.0); Hemoglobin 11.5 GM/DL (12.0-16.0); Immature Granulocytes % 1.7 %; Immature Granulocytes Absolute 0.21 #; Lymphocytes # 0.7 10*3/uL (1.4-4.0); Lymphocytes % 5.7 % (21.3-54.2); Mean Corpuscular HGB Conc 32.3 GM/DL (32-36); Mean Platelet Volume 9.4 FL (9.6-12.0); Monocytes % 4.2 % (1.7-12.7); Neutrophils % 88.2 % (38.7-73.9); Platelet Count 328 T/CUMM (130-400); Red Blood Count 3.91 MC/CUMM (3.8-5.5); Red Cell Distribution Width 14.7 % (9.3-17.3)
[2021-05-24 04:33] LABS: Calcium 8.8 MG/DL (8.5-10.1); Osmolality,Calculated 296.3 MOS/KG (273-304); Potassium 3.8 MMOL/L (3.5-5.1)
[2021-05-24] MEDS: methylPREDNISolone SOD SUC 40 MG/1 ML VIAL IV SCH ×4 (05:37→21:36)
[2021-05-24] MEDS: LEVOTHYROXINE 88 MCG TABLET PO SCH (06:12)
[2021-05-24] MEDS: INSULIN LISPRO 100 UNIT/ML SUBCUT SCH ×4 (09:27→21:29)
[2021-05-24] MEDS: TIMOLOL 0.5% OPH SOLN 5 ML BOTTLE LEFT EYE SCH (09:28)
[2021-05-24] MEDS: ASCORBIC ACID 500 MG TABLET PO SCH ×2 (09:28→21:31)
[2021-05-24] MEDS: EZETIMIBE 10 MG TABLET PO SCH (09:28)
[2021-05-24] MEDS: CHOLECALCIFEROL 1,000 UNIT TABLET PO SCH (09:28)
[2021-05-24] MEDS: ISOSORBIDE MONONITRATE 30 MG TABLET PO SCH (09:28)
[2021-05-24] MEDS: OMEGA 3 ACID ETHYL ESTERS 1 GM CAPSULE PO SCH ×2 (09:29→21:30)
[2021-05-24] MEDS: ZINC GLUCONATE 50 MG TABLET PO SCH (09:29)
[2021-05-24] MEDS: PANTOPRAZOLE 40 MG TABLET PO SCH (09:29)
[2021-05-24] MEDS: CETIRIZINE 10 MG TABLET PO SCH (09:29)
[2021-05-24] MEDS: CLOPIDOGREL 75 MG TABLET PO SCH (09:29)
[2021-05-24] MEDS: SPIRONOLACTONE 25 MG TABLET PO SCH (09:29)
[2021-05-24] MEDS: FAMOTIDINE 20 MG TABLET PO SCH ×2 (09:29→21:31)
[2021-05-24] MEDS: FINASTERIDE 5 MG TABLET PO SCH (09:29)
[2021-05-24] MEDS: RANOLAZINE 500 MG TABLET PO SCH ×2 (09:29→21:30)
[2021-05-24] MEDS: carvediloL 25 MG TABLET PO SCH ×2 (09:29→21:31)
[2021-05-24] MEDS: REMDESIVIR 100 MG in SODIUM CHLORIDE 0.9% 100 ML IV SCH (09:52)
[2021-05-24] MEDS: AZITHROMYCIN INJ 500 MG in SODIUM CHLORIDE 0.9% 250 ML IV SCH (11:47)
[2021-05-24] MEDS ORDERED: SODIUM CHLORIDE 0.9% 1,000 ML IV PRN (13:33)
[2021-05-24] MEDS: ENOXAPARIN 40 MG/0.4 ML SYRINGE SUBCUT SCH (16:43)
[2021-05-24] MEDS: ROSUVASTATIN 20 MG TABLET PO SCH (21:30)
[2021-05-24] MEDS: PRAMIPEXOLE 0.25 MG TABLET PO SCH (21:31)
[2021-05-25] MEDS: ALBUTEROL INHALER 18 GM INH SCH ×5 (02:59→18:19)
[2021-05-25] MEDS: methylPREDNISolone SOD SUC 40 MG/1 ML VIAL IV SCH ×4 (04:30→23:55)
[2021-05-25 05:48] LABS: Basophils # 0.1 10*3/uL (0.0-0.2); Basophils % 0.5 % (0.0-0.8); Hematocrit 34.8 VOL% (35.7-47.0); Hemoglobin 11.6 GM/DL (12.0-16.0); Immature Granulocytes % 4.8 %; Lymphocytes # 0.7 10*3/uL (1.4-4.0); Mean Corpuscular HGB Conc 33.3 GM/DL (32-36); Mean Corpuscular Volume 90.2 FL (87-102); Mean Platelet Volume 9.3 FL (9.6-12.0); Monocytes % 4.7 % (1.7-12.7); Platelet Count 326 T/CUMM (130-400); Red Blood Count 3.86 MC/CUMM (3.8-5.5); Red Cell Distribution Width 14.8 % (9.3-17.3); White Blood Count 10.5 T/CUMM (4-12)
[2021-05-25] MEDS: LEVOTHYROXINE 88 MCG TABLET PO SCH (06:01)
[2021-05-25 06:05] LABS: Albumin 2.7 G/DL (3.4-5.0); Bilirubin,Total 0.7 MG/DL (0.20-1.00); Calcium 8.5 MG/DL (8.5-10.1); Ferritin 448.7 ng/ml (8-252); Osmolality,Calculated 297.3 MOS/KG (273-304); Potassium 3.5 MMOL/L (3.5-5.1); Total Protein 6.4 G/DL (6.4-8.2)
[2021-05-25] MEDS: REMDESIVIR 100 MG in SODIUM CHLORIDE 0.9% 100 ML IV SCH (09:57)
[2021-05-25] MEDS: AZITHROMYCIN INJ 500 MG in SODIUM CHLORIDE 0.9% 250 ML IV SCH (10:00)
[2021-05-25] MEDS: EZETIMIBE 10 MG TABLET PO SCH (10:07)
[2021-05-25] MEDS: CLOPIDOGREL 75 MG TABLET PO SCH (10:07)
[2021-05-25] MEDS: RANOLAZINE 500 MG TABLET PO SCH ×2 (10:08→21:30)
[2021-05-25] MEDS: PANTOPRAZOLE 40 MG TABLET PO SCH (10:08)
[2021-05-25] MEDS: ASCORBIC ACID 500 MG TABLET PO SCH ×2 (10:08→21:30)
[2021-05-25] MEDS: FINASTERIDE 5 MG TABLET PO SCH (10:08)
[2021-05-25] MEDS: CHOLECALCIFEROL 1,000 UNIT TABLET PO SCH (10:08)
[2021-05-25] MEDS: SPIRONOLACTONE 25 MG TABLET PO SCH (10:08)
[2021-05-25] MEDS: ZINC GLUCONATE 50 MG TABLET PO SCH (10:08)
[2021-05-25] MEDS: CETIRIZINE 10 MG TABLET PO SCH (10:09)
[2021-05-25] MEDS: OMEGA 3 ACID ETHYL ESTERS 1 GM CAPSULE PO SCH ×2 (10:09→21:30)
[2021-05-25] MEDS: FAMOTIDINE 20 MG TABLET PO SCH ×2 (10:09→21:30)
[2021-05-25] MEDS: INSULIN LISPRO 100 UNIT/ML SUBCUT SCH ×4 (10:09→21:30)
[2021-05-25] MEDS: ISOSORBIDE MONONITRATE 30 MG TABLET PO SCH (10:09)
[2021-05-25] MEDS: carvediloL 25 MG TABLET PO SCH ×2 (10:09→21:30)
[2021-05-25] MEDS: TIMOLOL 0.5% OPH SOLN 5 ML BOTTLE LEFT EYE SCH (12:02)
[2021-05-25] MEDS ORDERED: INSULIN LISPRO 100 UNIT/ML SUBCUT ONE (15:42)
[2021-05-25 16:16] LABS: Calcium 8.4 MG/DL (8.5-10.1); Osmolality,Calculated 292.7 MOS/KG (273-304); Potassium 3.4 MMOL/L (3.5-5.1)
[2021-05-25] MEDS: ENOXAPARIN 40 MG/0.4 ML SYRINGE SUBCUT SCH (17:23)
[2021-05-25] MEDS: ROSUVASTATIN 20 MG TABLET PO SCH (21:30)
[2021-05-25] MEDS: PRAMIPEXOLE 0.25 MG TABLET PO SCH (21:30)
[2021-05-26] MEDS: ALBUTEROL INHALER 18 GM INH SCH ×4 (00:35→18:26)
[2021-05-26 05:03] LABS: Basophils # 0.1 10*3/uL (0.0-0.2); Basophils % 0.7 % (0.0-0.8); Hematocrit 35.4 VOL% (35.7-47.0); Hemoglobin 11.6 GM/DL (12.0-16.0); Immature Granulocytes Absolute 1.06 #; Lymphocytes # 0.9 10*3/uL (1.4-4.0); Lymphocytes % 7.2 % (21.3-54.2); Mean Corpuscular HGB Conc 32.8 GM/DL (32-36); Mean Corpuscular Volume 89.8 FL (87-102); Mean Platelet Volume 9.3 FL (9.6-12.0); NRBC # 0.03 10*3/uL; Neutrophils % 78.1 % (38.7-73.9); Platelet Count 349 T/CUMM (130-400); Red Blood Count 3.94 MC/CUMM (3.8-5.5); Red Cell Distribution Width 14.5 % (9.3-17.3); White Blood Count 11.8 T/CUMM (4-12)
[2021-05-26 05:29] LABS: Albumin 2.7 G/DL (3.4-5.0); Bilirubin,Total 0.7 MG/DL (0.20-1.00); Calcium 8.5 MG/DL (8.5-10.1); Osmolality,Calculated 294.1 MOS/KG (273-304); Potassium 3.4 MMOL/L (3.5-5.1); Total Protein 6.4 G/DL (6.4-8.2)
[2021-05-26 05:38] LABS: Lymphocytes 8 % (20-55); Nucleated Red Blood Cells 1 (0-5); Platelet Estimate Normal; Segmented Neutrophils 87 % (50-85); Total Cells Counted 100
[2021-05-26] MEDS: LEVOTHYROXINE 88 MCG TABLET PO SCH (06:25)
[2021-05-26] MEDS ORDERED: POTASSIUM CHLORIDE 20 MEQ TABLET PO ONE (07:16)
[2021-05-26] MEDS: INSULIN LISPRO 100 UNIT/ML SUBCUT SCH ×4 (09:30→20:20)
[2021-05-26] MEDS: RANOLAZINE 500 MG TABLET PO SCH ×2 (09:30→20:20)
[2021-05-26] MEDS: FINASTERIDE 5 MG TABLET PO SCH (09:30)
[2021-05-26] MEDS: carvediloL 25 MG TABLET PO SCH ×2 (09:30→20:20)
[2021-05-26] MEDS: EZETIMIBE 10 MG TABLET PO SCH (09:30)
[2021-05-26] MEDS: CLOPIDOGREL 75 MG TABLET PO SCH (09:31)
[2021-05-26] MEDS: SPIRONOLACTONE 25 MG TABLET PO SCH (09:31)
[2021-05-26] MEDS: OMEGA 3 ACID ETHYL ESTERS 1 GM CAPSULE PO SCH ×2 (09:31→20:20)
[2021-05-26] MEDS: IBUPROFEN 400 MG TABLET PO PRN (09:31)
[2021-05-26] MEDS: FAMOTIDINE 20 MG TABLET PO SCH ×2 (09:31→20:20)
[2021-05-26] MEDS: CHOLECALCIFEROL 1,000 UNIT TABLET PO SCH (09:31)
[2021-05-26] MEDS: ISOSORBIDE MONONITRATE 30 MG TABLET PO SCH (09:31)
[2021-05-26] MEDS: AZITHROMYCIN INJ 500 MG in SODIUM CHLORIDE 0.9% 250 ML IV SCH (09:32)
[2021-05-26] MEDS: CETIRIZINE 10 MG TABLET PO SCH (09:32)
[2021-05-26] MEDS: PANTOPRAZOLE 40 MG TABLET PO SCH (09:32)
[2021-05-26] MEDS: ASCORBIC ACID 500 MG TABLET PO SCH ×2 (09:32→20:20)
[2021-05-26] MEDS: ZINC GLUCONATE 50 MG TABLET PO SCH (09:32)
[2021-05-26] MEDS: methylPREDNISolone SOD SUC 40 MG/1 ML VIAL IV SCH ×4 (09:34→22:30)
[2021-05-26] MEDS: TIMOLOL 0.5% OPH SOLN 5 ML BOTTLE LEFT EYE SCH (10:28)
[2021-05-26] MEDS: REMDESIVIR 100 MG in SODIUM CHLORIDE 0.9% 100 ML IV SCH (11:11)
[2021-05-26] MEDS: ENOXAPARIN 40 MG/0.4 ML SYRINGE SUBCUT SCH (16:05)
[2021-05-26] MEDS: PRAMIPEXOLE 0.25 MG TABLET PO SCH (20:20)
[2021-05-26] MEDS: ROSUVASTATIN 20 MG TABLET PO SCH (20:20)
[2021-05-27] MEDS: ALBUTEROL INHALER 18 GM INH SCH ×4 (01:45→12:15)
[2021-05-27 05:21] LABS: Basophils % 0.2 % (0.0-0.8); Hematocrit 35.4 VOL% (35.7-47.0); Hemoglobin 11.3 GM/DL (12.0-16.0); Immature Granulocytes % 7.9 %; Immature Granulocytes Absolute 0.96 #; Lymphocytes # 0.7 10*3/uL (1.4-4.0); Lymphocytes % 5.6 % (21.3-54.2); Mean Corpuscular HGB Conc 31.9 GM/DL (32-36); Mean Corpuscular Volume 91.9 FL (87-102); Mean Platelet Volume 9.5 FL (9.6-12.0); Monocytes % 4.9 % (1.7-12.7); NRBC # 0.03 10*3/uL; Neutrophils % 81.4 % (38.7-73.9); Platelet Count 344 T/CUMM (130-400); Red Blood Count 3.85 MC/CUMM (3.8-5.5); Red Cell Distribution Width 14.6 % (9.3-17.3); White Blood Count 12.2 T/CUMM (4-12)
[2021-05-27 05:36] LABS: Ferritin 329.6 ng/ml (8-252)
[2021-05-27 05:39] LABS: Albumin 2.7 G/DL (3.4-5.0); Calcium 8.4 MG/DL (8.5-10.1); Osmolality,Calculated 297.3 MOS/KG (273-304); Potassium 3.7 MMOL/L (3.5-5.1)
[2021-05-27 05:58] LABS: Band Neutrophils 1 % (0-10); Lymphocytes 10 % (20-55); Microcytosis 1+; Ovalocytes Slight; Segmented Neutrophils 80 % (50-85); Total Cells Counted 100
[2021-05-27 05:59] LABS: Platelet Estimate Normal
[2021-05-27] MEDS: LEVOTHYROXINE 88 MCG TABLET PO SCH (06:45)
[2021-05-27] MEDS: IBUPROFEN 400 MG TABLET PO PRN (07:29)
[2021-05-27 07:42] VITALS: BP 126/70
[2021-05-27] MEDS: methylPREDNISolone SOD SUC 40 MG/1 ML VIAL IV SCH (07:59)
[2021-05-27] MEDS ORDERED: methylPREDNISolone SOD SUC 40 MG/1 ML VIAL IV SCH (08:00)
[2021-05-27] MEDS: FINASTERIDE 5 MG TABLET PO SCH (08:55)
[2021-05-27] MEDS: CHOLECALCIFEROL 1,000 UNIT TABLET PO SCH (08:55)
[2021-05-27] MEDS: carvediloL 25 MG TABLET PO SCH (08:55)
[2021-05-27] MEDS: SPIRONOLACTONE 25 MG TABLET PO SCH (08:55)
[2021-05-27] MEDS: RANOLAZINE 500 MG TABLET PO SCH (08:56)
[2021-05-27] MEDS: ISOSORBIDE MONONITRATE 30 MG TABLET PO SCH (08:56)
[2021-05-27] MEDS: OMEGA 3 ACID ETHYL ESTERS 1 GM CAPSULE PO SCH (08:56)
[2021-05-27] MEDS: ZINC GLUCONATE 50 MG TABLET PO SCH (08:56)
[2021-05-27] MEDS: CETIRIZINE 10 MG TABLET PO SCH (08:56)
[2021-05-27] MEDS: EZETIMIBE 10 MG TABLET PO SCH (08:56)
[2021-05-27] MEDS: FAMOTIDINE 20 MG TABLET PO SCH (08:56)
[2021-05-27] MEDS: CLOPIDOGREL 75 MG TABLET PO SCH (08:56)
[2021-05-27] MEDS: PANTOPRAZOLE 40 MG TABLET PO SCH (08:56)
[2021-05-27] MEDS: ASCORBIC ACID 500 MG TABLET PO SCH (08:57)
[2021-05-27] MEDS: INSULIN LISPRO 100 UNIT/ML SUBCUT SCH ×2 (08:57→11:54)
[2021-05-27] MEDS: TIMOLOL 0.5% OPH SOLN 5 ML BOTTLE LEFT EYE SCH (09:00)
== END 2021-05-27 13:51 | disposition home or self-care (01) | DRG 177 ==
LOC: N.ED 10:34 → N.EDINP 15:54 → SUATTDRO 15:54 → N.2E 16:20
PROVIDERS: ADMIT Internal Medicine; ATTEND Internal Medicine

== ENCOUNTER 2021-07-29 12:13 | Inpatient (IN) ==
[2021-07-29] MEDS ORDERED: ASPIRIN 325 MG TABLET PO STA (12:35)
[2021-07-29 12:59] LABS: Basophils # 0.1 10*3/uL (0.0-0.2); Eosinophils # 0.2 10*3/uL (0.0-0.87); Eosinophils % 3.4 % (0.00-10.9); Hemoglobin 13.6 GM/DL (12.0-16.0); Immature Granulocytes % 1.6 %; Lymphocytes % 32.6 % (21.3-54.2); Mean Corpuscular HGB Conc 30.9 GM/DL (32-36); Mean Corpuscular Volume 96.3 FL (87-102); Mean Platelet Volume 9.6 FL (9.6-12.0); Monocytes % 7.7 % (1.7-12.7); Neutrophils % 53.7 % (38.7-73.9); Platelet Count 256 T/CUMM (130-400); Red Blood Count 4.57 MC/CUMM (3.8-5.5); Red Cell Distribution Width 15.9 % (9.3-17.3); White Blood Count 6.2 T/CUMM (4-12)
[2021-07-29 13:18] LABS: Albumin 3.7 G/DL (3.4-5.0); Bilirubin,Total 1.4 MG/DL (0.20-1.00); Calcium 9.4 MG/DL (8.5-10.1); Osmolality,Calculated 281.4 MOS/KG (273-304); Potassium 3.9 MMOL/L (3.5-5.1); Total Protein 7.1 G/DL (6.4-8.2)
[2021-07-29] MEDS ORDERED: HYDROmorphone 2 MG/1 ML VIAL IV STA (14:21)
[2021-07-29] MEDS ORDERED: ONDANSETRON 4 MG/2 ML VIAL IV STA (14:21)
[2021-07-29] MEDS ORDERED: DEXTROSE 50% 25 GM/50 ML VIAL IV PRN (14:54)
[2021-07-29] MEDS ORDERED: ACETAMINOPHEN 325 MG TABLET PO PRN (14:54)
[2021-07-29] MEDS ORDERED: GLUCAGON 1 MG VIAL IM PRN (14:54)
[2021-07-29] MEDS ORDERED: FUROSEMIDE 40 MG TABLET PO PRN (15:08)
[2021-07-29] MEDS ORDERED: NITROGLYCERIN SL 0.4 MG TABLET SL PRN (15:08)
[2021-07-29] MEDS: INSULIN LISPRO 100 UNIT/ML SUBCUT SCH ×2 (18:41→21:15)
[2021-07-29] MEDS: ENOXAPARIN 40 MG/0.4 ML SYRINGE SUBCUT SCH (18:42)
[2021-07-29] MEDS: HYDROCORTISONE 10 MG TABLET PO SCH (21:13)
[2021-07-29] MEDS: CALCIUM (CARBONATE) 500 MG TABLET PO SCH (21:14)
[2021-07-29] MEDS: SIMVASTATIN 20 MG TABLET PO SCH (21:14)
[2021-07-29] MEDS: OMEGA 3 ACID ETHYL ESTERS 1 GM CAPSULE PO SCH (21:14)
[2021-07-29] MEDS: FINASTERIDE 5 MG TABLET PO SCH (21:14)
[2021-07-29] MEDS: CHOLECALCIFEROL 1,000 UNIT TABLET PO SCH (21:14)
[2021-07-29] MEDS: HYDROmorphone 2 MG/1 ML VIAL IV PRN (21:15)
[2021-07-29] MEDS: RANOLAZINE 500 MG TABLET PO SCH (21:15)
[2021-07-29] MEDS: MULTIVITAMIN (CENTRUM) TABLET PO SCH (21:15)
[2021-07-29] MEDS: carvediloL 25 MG TABLET PO SCH (21:15)
[2021-07-29] MEDS: PRAMIPEXOLE 0.25 MG TABLET PO SCH (22:03)
[2021-07-30] MEDS: HYDROmorphone 2 MG/1 ML VIAL IV PRN ×4 (02:03→21:20)
[2021-07-30 05:43] LABS: Basophils # 0.1 10*3/uL (0.0-0.2); Basophils % 0.6 % (0.0-0.8); Eosinophils # 0.3 10*3/uL (0.0-0.87); Eosinophils % 3.5 % (0.00-10.9); Hematocrit 40.2 VOL% (35.7-47.0); Hemoglobin 12.2 GM/DL (12.0-16.0); Immature Granulocytes % 0.6 %; Immature Granulocytes Absolute 0.05 #; Lymphocytes # 1.9 10*3/uL (1.4-4.0); Lymphocytes % 23.5 % (21.3-54.2); Mean Corpuscular HGB Conc 30.3 GM/DL (32-36); Mean Corpuscular Volume 97.1 FL (87-102); Mean Platelet Volume 9.9 FL (9.6-12.0); Monocytes % 6.4 % (1.7-12.7); Neutrophils % 65.4 % (38.7-73.9); Platelet Count 261 T/CUMM (130-400); Red Blood Count 4.14 MC/CUMM (3.8-5.5); White Blood Count 7.9 T/CUMM (4-12)
[2021-07-30 06:22] LABS: Calcium 9.1 MG/DL (8.5-10.1); Osmolality,Calculated 276.7 MOS/KG (273-304); Potassium 3.8 MMOL/L (3.5-5.1); Risk Ratio 3.4; Thyroid Stimulating Hormone 0.17 uIU/ml (0.358-3.74); VLDL Cholesterol 74.2 MG/DL
[2021-07-30] MEDS: LEVOTHYROXINE 88 MCG TABLET PO SCH (06:25)
[2021-07-30] MEDS ORDERED: NON-FORMULARY MEDICATION (Omeprazole 40 mg capsule,delayed release(DR/EC)) PO SCH (09:00)
[2021-07-30] MEDS ORDERED: metFORMIN 500 MG TABLET PO SCH (09:00)
[2021-07-30] MEDS: EZETIMIBE 10 MG TABLET PO SCH (09:38)
[2021-07-30] MEDS: PANTOPRAZOLE 40 MG TABLET PO SCH (09:38)
[2021-07-30] MEDS: OMEGA 3 ACID ETHYL ESTERS 1 GM CAPSULE PO SCH ×2 (09:38→21:19)
[2021-07-30] MEDS: SPIRONOLACTONE 25 MG TABLET PO SCH (09:38)
[2021-07-30] MEDS: ISOSORBIDE MONONITRATE 60 MG TABLET PO SCH (09:38)
[2021-07-30] MEDS: carvediloL 25 MG TABLET PO SCH ×2 (09:38→21:19)
[2021-07-30] MEDS: RANOLAZINE 500 MG TABLET PO SCH ×2 (09:38→21:18)
[2021-07-30] MEDS: ASPIRIN EC 81 MG TABLET PO SCH (09:39)
[2021-07-30] MEDS: HYDROCORTISONE 10 MG TABLET PO SCH ×2 (09:39→21:19)
[2021-07-30] MEDS: INSULIN LISPRO 100 UNIT/ML SUBCUT SCH ×4 (09:39→21:19)
[2021-07-30] MEDS: NON-FORMULARY MEDICATION (Biotin 5 mg Tablet) PO SCH (09:40)
[2021-07-30] MEDS: TIMOLOL 0.5% OPH SOLN 5 ML BOTTLE LEFT EYE SCH (11:26)
[2021-07-30] MEDS: ONDANSETRON 4 MG/2 ML VIAL IV PRN ×2 (11:44→21:20)
[2021-07-30] MEDS: ENOXAPARIN 40 MG/0.4 ML SYRINGE SUBCUT SCH (17:26)
[2021-07-30] MEDS: PRAMIPEXOLE 0.25 MG TABLET PO SCH (21:18)
[2021-07-30] MEDS: FINASTERIDE 5 MG TABLET PO SCH (21:18)
[2021-07-30] MEDS: CALCIUM (CARBONATE) 500 MG TABLET PO SCH (21:18)
[2021-07-30] MEDS: MULTIVITAMIN (CENTRUM) TABLET PO SCH (21:18)
[2021-07-30] MEDS: SIMVASTATIN 20 MG TABLET PO SCH (21:19)
[2021-07-30] MEDS: CHOLECALCIFEROL 1,000 UNIT TABLET PO SCH (21:19)
[2021-07-31] MEDS: ONDANSETRON 4 MG/2 ML VIAL IV PRN (03:56)
[2021-07-31] MEDS: HYDROmorphone 2 MG/1 ML VIAL IV PRN ×2 (03:57→17:10)
[2021-07-31] MEDS: LEVOTHYROXINE 88 MCG TABLET PO SCH (05:30)
[2021-07-31] MEDS: INSULIN LISPRO 100 UNIT/ML SUBCUT SCH ×4 (08:15→23:45)
[2021-07-31] MEDS: POLYETHYLENE GLYCOL POWDER 17 GM PACK PO SCH ×2 (09:06→20:38)
[2021-07-31] MEDS: RANOLAZINE 500 MG TABLET PO SCH ×2 (09:07→20:39)
[2021-07-31] MEDS: EZETIMIBE 10 MG TABLET PO SCH (09:07)
[2021-07-31] MEDS: HYDROCORTISONE 10 MG TABLET PO SCH ×2 (09:07→20:39)
[2021-07-31] MEDS: SPIRONOLACTONE 25 MG TABLET PO SCH (09:07)
[2021-07-31] MEDS: ASPIRIN EC 81 MG TABLET PO SCH (09:08)
[2021-07-31] MEDS: OMEGA 3 ACID ETHYL ESTERS 1 GM CAPSULE PO SCH ×2 (09:08→20:38)
[2021-07-31] MEDS: carvediloL 25 MG TABLET PO SCH ×2 (09:08→20:40)
[2021-07-31] MEDS: ISOSORBIDE MONONITRATE 60 MG TABLET PO SCH (09:08)
[2021-07-31] MEDS: PANTOPRAZOLE 40 MG TABLET PO SCH (09:08)
[2021-07-31] MEDS: DOCUSATE SODIUM 100 MG CAPSULE PO SCH ×2 (09:08→20:38)
[2021-07-31] MEDS: NON-FORMULARY MEDICATION (Biotin 5 mg Tablet) PO SCH (09:10)
[2021-07-31] MEDS: TIMOLOL 0.5% OPH SOLN 5 ML BOTTLE LEFT EYE SCH (09:34)
[2021-07-31] MEDS: MAGNESIUM HYDROXIDE SUSP 30 ML UDCUP PO PRN (17:09)
[2021-07-31] MEDS: ENOXAPARIN 40 MG/0.4 ML SYRINGE SUBCUT SCH (17:13)
[2021-07-31] MEDS: CALCIUM (CARBONATE) 500 MG TABLET PO SCH (20:39)
[2021-07-31] MEDS: FINASTERIDE 5 MG TABLET PO SCH (20:39)
[2021-07-31] MEDS: CHOLECALCIFEROL 1,000 UNIT TABLET PO SCH (20:39)
[2021-07-31] MEDS: SIMVASTATIN 40 MG TABLET PO SCH (20:39)
[2021-07-31] MEDS: PRAMIPEXOLE 0.25 MG TABLET PO SCH (20:39)
[2021-07-31] MEDS: MULTIVITAMIN (CENTRUM) TABLET PO SCH (20:40)
[2021-08-01] MEDS: carvediloL 25 MG TABLET PO SCH ×2 (01:42→08:11)
[2021-08-01] MEDS: ONDANSETRON 4 MG/2 ML VIAL IV PRN ×2 (02:37→21:49)
[2021-08-01] MEDS: HYDROmorphone 2 MG/1 ML VIAL IV PRN ×3 (02:38→21:48)
[2021-08-01 05:34] LABS: Basophils % 0.6 % (0.0-0.8); Eosinophils # 0.2 10*3/uL (0.0-0.87); Eosinophils % 3.1 % (0.00-10.9); Hematocrit 39.9 VOL% (35.7-47.0); Hemoglobin 12.4 GM/DL (12.0-16.0); Immature Granulocytes % 0.7 %; Immature Granulocytes Absolute 0.05 #; Lymphocytes # 1.7 10*3/uL (1.4-4.0); Lymphocytes % 25.2 % (21.3-54.2); Mean Corpuscular HGB Conc 31.1 GM/DL (32-36); Mean Corpuscular Volume 95.7 FL (87-102); Mean Platelet Volume 9.5 FL (9.6-12.0); Monocytes % 7.1 % (1.7-12.7); Neutrophils % 63.3 % (38.7-73.9); Platelet Count 254 T/CUMM (130-400); Red Blood Count 4.17 MC/CUMM (3.8-5.5); Red Cell Distribution Width 15.6 % (9.3-17.3); White Blood Count 6.9 T/CUMM (4-12)
[2021-08-01 05:48] LABS: Calcium 8.9 MG/DL (8.5-10.1); Osmolality,Calculated 270.2 MOS/KG (273-304); Potassium 4.3 MMOL/L (3.5-5.1)
[2021-08-01] MEDS: LEVOTHYROXINE 88 MCG TABLET PO SCH (06:09)
[2021-08-01] MEDS: INSULIN LISPRO 100 UNIT/ML SUBCUT SCH ×3 (07:35→15:58)
[2021-08-01] MEDS: NON-FORMULARY MEDICATION (Biotin 5 mg Tablet) PO SCH (08:11)
[2021-08-01] MEDS: ISOSORBIDE MONONITRATE 60 MG TABLET PO SCH (08:12)
[2021-08-01] MEDS: POLYETHYLENE GLYCOL POWDER 17 GM PACK PO SCH ×2 (09:30→21:47)
[2021-08-01] MEDS: RANOLAZINE 500 MG TABLET PO SCH ×2 (09:31→21:50)
[2021-08-01] MEDS: EZETIMIBE 10 MG TABLET PO SCH (09:31)
[2021-08-01] MEDS: OMEGA 3 ACID ETHYL ESTERS 1 GM CAPSULE PO SCH ×2 (09:31→21:50)
[2021-08-01] MEDS: ASPIRIN EC 81 MG TABLET PO SCH (09:31)
[2021-08-01] MEDS: HYDROCORTISONE 10 MG TABLET PO SCH ×2 (09:31→21:51)
[2021-08-01] MEDS: DOCUSATE SODIUM 100 MG CAPSULE PO SCH ×2 (09:31→21:50)
[2021-08-01] MEDS: SPIRONOLACTONE 25 MG TABLET PO SCH (09:32)
[2021-08-01] MEDS: PANTOPRAZOLE 40 MG TABLET PO SCH (09:32)
[2021-08-01] MEDS: TIMOLOL 0.5% OPH SOLN 5 ML BOTTLE LEFT EYE SCH (09:34)
[2021-08-01] MEDS: MAGNESIUM HYDROXIDE SUSP 30 ML UDCUP PO PRN ×2 (14:28→21:48)
[2021-08-01] MEDS: ENOXAPARIN 40 MG/0.4 ML SYRINGE SUBCUT SCH (17:35)
[2021-08-01] MEDS: CHOLECALCIFEROL 1,000 UNIT TABLET PO SCH (21:49)
[2021-08-01] MEDS: CALCIUM (CARBONATE) 500 MG TABLET PO SCH (21:49)
[2021-08-01] MEDS: MULTIVITAMIN (CENTRUM) TABLET PO SCH (21:50)
[2021-08-01] MEDS: FINASTERIDE 5 MG TABLET PO SCH (21:50)
[2021-08-01] MEDS: SIMVASTATIN 40 MG TABLET PO SCH (21:51)
[2021-08-01] MEDS: PRAMIPEXOLE 0.25 MG TABLET PO SCH (21:51)
[2021-08-02] MEDS: INSULIN LISPRO 100 UNIT/ML SUBCUT SCH ×5 (02:16→21:49)
[2021-08-02] MEDS: carvediloL 25 MG TABLET PO SCH ×3 (02:16→21:47)
[2021-08-02 05:20] LABS: Basophils # 0.1 10*3/uL (0.0-0.2); Basophils % 0.8 % (0.0-0.8); Eosinophils # 0.3 10*3/uL (0.0-0.87); Eosinophils % 4.4 % (0.00-10.9); Hematocrit 41.1 VOL% (35.7-47.0); Hemoglobin 12.9 GM/DL (12.0-16.0); Immature Granulocytes % 0.5 %; Immature Granulocytes Absolute 0.03 #; Lymphocytes # 1.5 10*3/uL (1.4-4.0); Lymphocytes % 24.5 % (21.3-54.2); Mean Corpuscular HGB Conc 31.4 GM/DL (32-36); Mean Corpuscular Volume 95.6 FL (87-102); Mean Platelet Volume 9.3 FL (9.6-12.0); Monocytes % 8.7 % (1.7-12.7); Neutrophils % 61.1 % (38.7-73.9); Platelet Count 249 T/CUMM (130-400); Red Cell Distribution Width 15.9 % (9.3-17.3); White Blood Count 6.1 T/CUMM (4-12)
[2021-08-02] MEDS: LEVOTHYROXINE 88 MCG TABLET PO SCH (05:49)
[2021-08-02 05:57] LABS: Calcium 8.9 MG/DL (8.5-10.1); Osmolality,Calculated 270.2 MOS/KG (273-304); Potassium 4.2 MMOL/L (3.5-5.1)
[2021-08-02] MEDS: NON-FORMULARY MEDICATION (Biotin 5 mg Tablet) PO SCH (08:33)
[2021-08-02] MEDS ORDERED: LACTULOSE 20 GM/30 ML UDCUP PO ONE (09:30)
[2021-08-02] MEDS: POLYETHYLENE GLYCOL POWDER 17 GM PACK PO SCH ×2 (09:36→21:49)
[2021-08-02] MEDS: RANOLAZINE 500 MG TABLET PO SCH ×2 (09:38→21:45)
[2021-08-02] MEDS: OMEGA 3 ACID ETHYL ESTERS 1 GM CAPSULE PO SCH ×2 (09:39→21:45)
[2021-08-02] MEDS: EZETIMIBE 10 MG TABLET PO SCH (09:39)
[2021-08-02] MEDS: DOCUSATE SODIUM 100 MG CAPSULE PO SCH ×2 (09:39→21:48)
[2021-08-02] MEDS: ISOSORBIDE MONONITRATE 60 MG TABLET PO SCH (09:39)
[2021-08-02] MEDS: HYDROCORTISONE 10 MG TABLET PO SCH ×2 (09:39→21:47)
[2021-08-02] MEDS: ASPIRIN EC 81 MG TABLET PO SCH (09:39)
[2021-08-02] MEDS: PANTOPRAZOLE 40 MG TABLET PO SCH (09:39)
[2021-08-02] MEDS: SPIRONOLACTONE 25 MG TABLET PO SCH (09:39)
[2021-08-02] MEDS: TIMOLOL 0.5% OPH SOLN 5 ML BOTTLE LEFT EYE SCH (10:18)
[2021-08-02] MEDS ORDERED: MAGNESIUM CITRATE 300 ML BOTTLE PO ONE (16:00)
[2021-08-02] MEDS: ENOXAPARIN 40 MG/0.4 ML SYRINGE SUBCUT SCH (17:50)
[2021-08-02] MEDS: SIMVASTATIN 40 MG TABLET PO SCH (21:45)
[2021-08-02] MEDS: CHOLECALCIFEROL 1,000 UNIT TABLET PO SCH (21:45)
[2021-08-02] MEDS: MULTIVITAMIN (CENTRUM) TABLET PO SCH (21:46)
[2021-08-02] MEDS: PRAMIPEXOLE 0.25 MG TABLET PO SCH (21:46)
[2021-08-02] MEDS: FINASTERIDE 5 MG TABLET PO SCH (21:46)
[2021-08-02] MEDS: CALCIUM (CARBONATE) 500 MG TABLET PO SCH (21:47)
[2021-08-02] MEDS: HYDROmorphone 2 MG/1 ML VIAL IV PRN (21:56)
[2021-08-03] MEDS: HYDROmorphone 2 MG/1 ML VIAL IV PRN (02:03)
[2021-08-03] MEDS: INSULIN LISPRO 100 UNIT/ML SUBCUT SCH ×4 (08:25→21:39)
[2021-08-03] MEDS: RANOLAZINE 500 MG TABLET PO SCH ×2 (08:39→21:35)
[2021-08-03] MEDS: ASPIRIN EC 81 MG TABLET PO SCH (08:39)
[2021-08-03] MEDS: EZETIMIBE 10 MG TABLET PO SCH (08:39)
[2021-08-03] MEDS: carvediloL 25 MG TABLET PO SCH ×2 (08:39→21:34)
[2021-08-03] MEDS: ISOSORBIDE MONONITRATE 60 MG TABLET PO SCH (08:39)
[2021-08-03] MEDS: PANTOPRAZOLE 40 MG TABLET PO SCH (08:39)
[2021-08-03] MEDS: HYDROCORTISONE 10 MG TABLET PO SCH ×2 (08:39→21:35)
[2021-08-03] MEDS: SPIRONOLACTONE 25 MG TABLET PO SCH (08:40)
[2021-08-03] MEDS: NON-FORMULARY MEDICATION (Biotin 5 mg Tablet) PO SCH (08:40)
[2021-08-03] MEDS: OMEGA 3 ACID ETHYL ESTERS 1 GM CAPSULE PO SCH ×2 (08:40→21:33)
[2021-08-03] MEDS: DOCUSATE SODIUM 100 MG CAPSULE PO SCH ×2 (08:41→21:34)
[2021-08-03] MEDS: POLYETHYLENE GLYCOL POWDER 17 GM PACK PO SCH ×2 (08:41→21:36)
[2021-08-03] MEDS: TIMOLOL 0.5% OPH SOLN 5 ML BOTTLE LEFT EYE SCH (08:43)
[2021-08-03] MEDS: LEVOTHYROXINE 88 MCG TABLET PO SCH (08:46)
[2021-08-03] MEDS: ENOXAPARIN 40 MG/0.4 ML SYRINGE SUBCUT SCH (18:14)
[2021-08-03] MEDS: FINASTERIDE 5 MG TABLET PO SCH (21:33)
[2021-08-03] MEDS: CHOLECALCIFEROL 1,000 UNIT TABLET PO SCH (21:34)
[2021-08-03] MEDS: SIMVASTATIN 40 MG TABLET PO SCH (21:34)
[2021-08-03] MEDS: CALCIUM (CARBONATE) 500 MG TABLET PO SCH (21:34)
[2021-08-03] MEDS: MULTIVITAMIN (CENTRUM) TABLET PO SCH (21:35)
[2021-08-03] MEDS: PRAMIPEXOLE 0.25 MG TABLET PO SCH (21:35)
[2021-08-04] MEDS: LEVOTHYROXINE 88 MCG TABLET PO SCH (05:48)
[2021-08-04] MEDS: INSULIN LISPRO 100 UNIT/ML SUBCUT SCH ×3 (08:37→16:30)
[2021-08-04] MEDS: RANOLAZINE 500 MG TABLET PO SCH (09:10)
[2021-08-04] MEDS: HYDROCORTISONE 10 MG TABLET PO SCH (09:10)
[2021-08-04] MEDS: carvediloL 25 MG TABLET PO SCH (09:10)
[2021-08-04] MEDS: ISOSORBIDE MONONITRATE 60 MG TABLET PO SCH (09:10)
[2021-08-04] MEDS: TIMOLOL 0.5% OPH SOLN 5 ML BOTTLE LEFT EYE SCH (09:11)
[2021-08-04] MEDS ORDERED: DEXAMETHASONE 10 MG/1 ML VIAL ONE (11:22)
[2021-08-04] MEDS ORDERED: BUPIVACAINE MPF 0.25% 30 ML VIAL ONE (11:22)
[2021-08-04] MEDS: POLYETHYLENE GLYCOL POWDER 17 GM PACK PO SCH (11:49)
[2021-08-04] MEDS: OMEGA 3 ACID ETHYL ESTERS 1 GM CAPSULE PO SCH (11:49)
[2021-08-04] MEDS: DOCUSATE SODIUM 100 MG CAPSULE PO SCH (11:50)
[2021-08-04] MEDS ORDERED: LACTATED RINGERS 1,000 ML IV SCH (12:00)
[2021-08-04] MEDS ORDERED: fentaNYL 100 MCG/2 ML VIAL ONE (12:27)
[2021-08-04] MEDS ORDERED: MIDAZOLAM 2 MG/2 ML VIAL ONE (12:28)
[2021-08-04 13:45] VITALS: BP 133/65
[2021-08-04] MEDS: SPIRONOLACTONE 25 MG TABLET PO SCH (14:57)
[2021-08-04] MEDS: EZETIMIBE 10 MG TABLET PO SCH (14:57)
[2021-08-04] MEDS: PANTOPRAZOLE 40 MG TABLET PO SCH (14:57)
[2021-08-04] MEDS: ASPIRIN EC 81 MG TABLET PO SCH (14:57)
[2021-08-04] MEDS: NON-FORMULARY MEDICATION (Biotin 5 mg Tablet) PO SCH (14:58)
== END 2021-08-04 17:00 | DRG 552 ==
LOC: EDUNIT# → EDBD → N.ED 12:13 → N.EDINP 12:13 → SUATTDRO 14:21 → N.TELEN 16:40
PROVIDERS: ADMIT Internal Medicine; ATTEND Internal Medicine

== ENCOUNTER 2021-10-20 16:10 | Observation (INO) ==
[2021-10-21] MEDS ORDERED: hydrALAZINE 20 MG/1 ML VIAL IV PRN (00:56)
[2021-10-21] MEDS ORDERED: guaiFENesin/DM ER 600-30 MG TABLET PO PRN (00:56)
[2021-10-21] MEDS ORDERED: DEXTROSE 50% 25 GM/50 ML SYRINGE IV PRN (00:56)
[2021-10-21] MEDS ORDERED: ZALEPLON 5 MG CAPSULE PO PRN (00:56)
[2021-10-21] MEDS ORDERED: GLUCAGON 1 MG VIAL IM PRN ×2 (00:56)
[2021-10-21] MEDS ORDERED: ACETAMINOPHEN 325 MG TABLET PO PRN (00:56)
[2021-10-21] MEDS ORDERED: ONDANSETRON 4 MG/2 ML VIAL IV PRN (00:56)
[2021-10-21] MEDS ORDERED: DEXTROSE 50% 25 GM/50 ML VIAL IV PRN (00:56)
[2021-10-21] MEDS ORDERED: NICOTINE 21 MG/24 HR PATCH TRANSDERM PRN (00:56)
[2021-10-21] MEDS ORDERED: diphenhydrAMINE CAP 25 MG CAPSULE PO PRN (00:56)
[2021-10-21] MEDS ORDERED: HYDROmorphone 2 MG/1 ML VIAL IV PRN (01:17)
[2021-10-21 01:53] LABS: Basophils % 0.5 % (0.0-0.8); Eosinophils # 0.3 10*3/uL (0.0-0.87); Hematocrit 43.2 VOL% (35.7-47.0); Hemoglobin 13.3 GM/DL (12.0-16.0); Immature Granulocytes % 0.5 %; Immature Granulocytes Absolute 0.04 #; Lymphocytes # 1.9 10*3/uL (1.4-4.0); Lymphocytes % 21.7 % (21.3-54.2); Mean Corpuscular HGB Conc 30.8 GM/DL (32-36); Mean Corpuscular Volume 92.9 FL (87-102); Mean Platelet Volume 9.7 FL (9.6-12.0); Monocytes % 7.5 % (1.7-12.7); Neutrophils % 66.8 % (38.7-73.9); Platelet Count 251 T/CUMM (130-400); Red Blood Count 4.65 MC/CUMM (3.8-5.5); Red Cell Distribution Width 16.1 % (9.3-17.3); White Blood Count 8.8 T/CUMM (4-12)
[2021-10-21 02:04] LABS: Calcium 9.1 MG/DL (8.5-10.1); Osmolality,Calculated 281.4 MOS/KG (273-304); Potassium 3.5 MMOL/L (3.5-5.1)
[2021-10-21] MEDS ORDERED: INSULIN LISPRO 100 UNIT/ML SUBCUT SCH (07:30)
[2021-10-21] MEDS ORDERED: PANTOPRAZOLE 40 MG TABLET PO SCH (09:00)
[2021-10-21 11:14] VITALS: BP 131/61
== END 2021-10-21 10:46 | disposition home or self-care (01) ==
LOC: N.EDINP 16:10 → N.ED 16:10 → N.EDINP 10-21 10:46
PROVIDERS: ADMIT Internal Medicine; ATTEND Internal Medicine